=== PATIENT | female | born 1955 ===

== ENCOUNTER 2025-02-27 14:03 | Outpatient (AMB) | payer MEDICARE, SELFPAY ==
--- NOTE | 2025-02-27 14:05 | A.OFFPC_ITS ---
Vital Signs 02/27/25 14:19 Height 4 ft 11.84 in Weight 186 lb BMI 36.5 BP 114/67 Blood Pressure Location Rt brachial Pulse 70 Pulse Source Pulse Oximeter Temp 97.8 F Temp Source Oral Pulse Oximetry (%) 97 Oxygen Delivery Method Room Air Intake Visit Reasons: MOTION PICTURE SET GRIP-Parkinson's Disease Pt r/s'd from 02/12/25 Accompanied by: Self / Same As Patient Allergies morphine Allergy (Severe, Verified 02/27/25 14:14) sob latex Allergy (Intermediate, Verified 02/27/25 14:14) Rash Medication List - Last Reconciled 02/27/25 by Chris Bui MD [3 point cane As directed] beclomethasone dipropionate 80 mcg/actuation (Qvar RediHaler) 1 inh inhalation BID [commode bedside As directed] cyclobenzaprine 10 mg PO TID denosumab (Prolia) 60 mg subcut [id number] erenumab-aooe (Aimovig Autoinjector) 140 mg subcut QMONTH isosorbide mononitrate ER 60 mg PO DAILY levothyroxine (Synthroid) 50 mcg PO DAILY liothyronine (Cytomel) 5 mcg PO .twice week losartan 50 mg PO ONCE metoprolol succinate ER 100 mg PO BID nateglinide 120 mg PO TID ondansetron 4 mg PO Q4-6H pantoprazole (Protonix) 40 mg PO BID trazodone 50 - 100 mg PO BEDTIME PRN Tobacco use date assessed: 02/27/25 Fall risk assessment: 2 + Falls in past year Last assessed Fall Risk: 02/27/25 Dental Screening Dental Screen Date: 02/27/25 Did you have a dental visit in the last 12 months?: Yes HPI HPI Comments History of Present Illness Details History of Present Illness The patient is a 69 year old female presenting for establishment of care and management of multiple chronic medical problems. Parkinson's disease: The patient was diagnosed with Parkinson's disease around summer, at the same time as her diabetes diagnosis. She reports frequent falls due to her Parkinson's disease, with the most recent fall occurring about a month ago, which prompted a 911 call. She also experiences imbalance, difficulty writing, and requires a cane for ambulation. She takes carbidopa-levodopa for her symptoms and is pending an appointment with a neurologist. She has not had physical or occupational therapy. Diabetes mellitus: The patient has a new diagnosis of diabetes mellitus since the summer, diagnosed concurrently with her Parkinson's disease. She takes an unspecified medication for her diabetes. She has not seen a mounting inspector, senior investment analyst, or ems educator for her condition. Her last ophthalmology visit is scheduled for March 16, but it is unclear if she has had retinopathy screening. She does not know her last hemoglobin A1c value. Cardiovascular Disease: The patient has a history of coronary artery disease and hypertension. She takes isosorbide mononitrate, losartan, and metoprolol for these conditions. Her last echocardiogram was 8-10 years ago and her last EKG was reported as excellent by her aesthetician in [place]. Gastrointestinal Issues: The patient reports a history of gastritis, GERD, and having ulcers twice. She experiences abdominal pain most of the time and persistent nausea. She takes pantoprazole for GERD and ondansetron for nausea. She has had two prior EGDs which were reportedly normal. Health Maintenance: The patient is 69 years old and moved to [place] from [place] in November. She reports her last mammogram is not up-to-date and her last colonoscopy was about eight years ago. She is not due for Pap smears due to a hysterectomy in 2006. Surgical History: - Left eye cataract surgery with lens re placement - Hysterectomy - Cholecystectomy Medications: - Qvar inhaler for asthma - Cyclobenzaprine 10 mg three times a da y for muscle spasms and back pain - Prolia (Denosumab) every 6 months for osteoporosis - Aimovig autoinjector once a month for migraines - Isosorbide mononitrate 60 mg for coron meeta artery disease - Levothyroxine 50 mcg daily for thyroid - liothyronine thyroid medication twice a week - Losartan 50 mg for blood pressure - Metoprolol for blood pressure and [place]cia [place]ary artery disease - nateglinide for diabetes - Ondansetron for nausea and vomiting - Pantoprazole for GERD - Trazodone for insomnia - Carbidopa-levodopa for Parkinson's dis ease Social History: - Smoking History: Denies smoking. - Substance Use: Denies illicit drug use . - Employment: Retired. 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 - Living Situation: Lives with her daugh ter and granddaughter. - Functional Status: Experiences recurre nt falls, imbalance, and difficulty with writing, attributed to Parkinson's disease. Uses a shower bar and a shower bench at home. - Nutrition: Her daughter buys organic, low-sugar foods. - Family Planning: Patient has children from normal deliveries. Diagnostic Results: - EKG: Reported as excellent by her prev [facility] aesthetician. - Echocardiogram: Performed 8-10 years a go, results not specified. - EGD: Performed twice, reportedly with no significant findings. - Colonoscopy: Performed about 8 years a go, results not specified. Past Medical History - Hypertension - Coronary artery disease - Hypothyroidism - Parkinson's disease, diagnosed recentl y - Diabetes, diagnosed recently - History of peptic ulcers (two episodes ) - Gastritis - Cataracts, status post left eye surger y, right eye surgery pending - Insomnia - Asthma, with no history of hospitaliza tion or intubation - Muscle spasms in the back - Anxiety and depression - Osteoporosis - Migraines - GERD - Recurrent falls, with one requiring a 911 call about a month ago - Edentulism Health Maintenance - Discussed need for mammogram. - Patient is due for a colonoscopy; this will be addressed by the GI referral. [facility] Medical History (Updated 02/27/25 @ 17:30 by Chris Bui MD) Bradykinesia Fine motor impairment Recurrent falls Edentulism Cataracts, bilateral Anxiety and depression History of peptic ulcer Insomnia Nausea and vomiting Hypertension Hypothyroid Migraines Osteoporosis Muscle spasm Back pain Asthma Gastritis CAD (coronary artery disease) Diabetes type 2 Parkinsons disease GERD (gastroesophageal reflux disease) Family History (Updated 02/27/25 @ 14:07 by Ivanna Restrepo CMA) Mother No problems noted. Father No problems noted. Social History Housing: House Patient Tobacco Use Status: Never used Tobacco e-Cigarette/Vaping Use: Never Used service: No Current occupational status: retired Cognitive needs: Yes (cane) Hearing needs: Yes (bilateral hearing aid) Vision needs: No Questionnaire PHQ-9 Over the last 2 weeks, how often have you been bothered by any of the following problems? 1. Little interest or pleasure in doing things: several days 2. Feeling down, depressed, or hopeless: several days 3. Trouble falling or staying asleep, or sleeping too much: several days 4. Feeling tired or having little energy: more than half the days 5. Poor appetite or overeating: several days 6. Feeling bad about yourself - or that you are a failure or have let yourself or your family down: not at all 7. Trouble concentrating on things, such as reading the newspaper or watching television: not at all 8. Moving or speaking so slowly that other people could have noticed. Or the opposite - being so fidgety or restless that you have been moving around a lot more than usual: more than half the days 9. Thoughts that you would be better off or of hurting yourself in some way: not at all Total score: 8 Depression Screening Interpretation: Negative Depression Screening Done: Yes Source: Developed by Drs. Anjel Bunn, Sara So, Nathaniel Muro and colleagues, with an educational chidi from [email or web address]. Thrive Questionnaire Date Thrive assessed: 02/27/25 I am a: Parent/Caregiver What is your living situation today?: I have a steady place to live Within the past 12 months, did the food you bought not last and you didn't have the money to get more?: Never true Within the past 12 months, did you worry whether your food would run out before you got money to buy more?: Never true Do you have trouble paying for medicines?: I choose not to answer this question Do you have trouble getting transportation to medical appointments?: No Do you have trouble paying your heating and electricity bill?: No Do you have trouble taking care of your child, family member or friend?: No Are you currently unemployed and looking for a job?: No Are you interested in more education?: No Please select the resources that you would like help with: Transportation, Utilities and Care for elder or disabled Currently or been in a relationship where the following occur: I choose not to answer THRIVE Score: 0 AUDIT C Alcohol Use Questionnaire (AUDIT-C) 1. How often do you have a drink containing alcohol?: Never Total Score: 0 SHELL-7 AMB Questionnaire SHELL-7 Date SHELL - 7 assessed: 02/27/25 Feeling nervous, anxious, or on edge: 2 = More than half the days Not being able to stop or control worryin = Nearly every day Worrying too much about different things: 3 = Nearly every day Trouble relaxin = Not at all Being so restless that it is hard to sit still: 2 = More than half the days Becoming easily annoyed or irritable: 2 = More than half the days Feeling afraid as if something awful might happen: 2 = More than half the days Total SHELL-7 score (0-4 normal; 5-9 mild; 10-14 moderate; 15-21 severe): 14 Source: Developed by Drs. Anjel Bunn, Sara So, Nathaniel Muro and colleagues, with an educational chidi from [email or web address]. Review of Systems Narrative Review of Systems - General: Denies pain. - Neurological: Reports migraines, muscle spasms, frequent falls, imbalance, and difficulty writing. Reports difficulty falling asleep and staying asleep. - HEENT: Reports cataracts in the right eye, with left eye surgery completed. Reports being edentulous. - Respiratory: Reports a history of asthma. Denies recent hospitalization or in tubation for asthma. - Gastrointestinal: Reports having ulcers twice in the past, gastritis, and GERD. Reports ongoing stomach pain and nausea. - Musculoskeletal: Reports osteoporosis and back pain with muscle spasms. Reports foot pain. - Psychiatric: Reports anxiety and depression. 10-point ROS reviewed and negative except as noted in HPI Physical exam (Primary Care) Vital Signs: Last Vital Signs Temp 97.8 F 02/27/25 14:19 Pulse 70 02/27/25 14:19 BP 114/67 02/27/25 14:19 Pulse Ox 97 02/27/25 14:19 Oxygen Delivery Method Room Air 02/27/25 14:19 BMI result Body Mass Index 36.5 Tobacco/Smoking Status: Tobacco use Status Tobacco use date assessed 02/27/25 02/27/25 14:08 Patient Tobacco Use Status Never used Tobacco 02/27/25 14:08 e-Cigarette/Vaping Use Never Used 02/27/25 14:08 PHQ-9: PHQ-9 Score PHQ-9: Total score 8 02/27/25 14:31 Depression Screening Interpretation: Negative Thrive Assessment: Date of Thrive Assessment Date Thrive assessed 02/27/25 02/27/25 14:08 Currently or been in a relationship where the following occur: I choose not to answer Narrative Physical Exam General: Well-appearing, in no acute distress. Vital signs: Within normal limits. HEENT: Normocephalic, atraumatic. PERRLA, EOMI. Conjunctiva clear, sclera anicteric. Oropharynx clear, mucous membranes moist. TMs intact bilaterally. Noted cataracts in the right eye, status post-surgery on the left eye. Neck: Supple, no lymphadenopathy, no thyromegaly, no JVD or carotid bruits. Cardiovascular: RRR, normal S1/S2, no murmurs, rubs, or gallops. Peripheral pulses 2+ and symmetric. No edema. Respiratory: Lungs clear to auscultation bilaterally, no wheezes, rales, or rhonchi. Normal effort. History of asthma, uses Qvar inhaler. Abdomen: Soft, non-tender, non-distended. Normoactive bowel sounds. No hepatosplenomegaly, no masses. History of gastritis and ulcers. MSK: Full range of motion, no joint swelling or deformity. Normal gait. Reports muscle spasms and back pain, uses cyclobenzaprine. Skin: Warm, dry, intact. No rashes, lesions, or pallor. History of eczema. Neuro: Alert and oriented x3. Cranial nerves II-XII intact. Strength 5/5 throughout. Sensation intact. Reflexes 2+ symmetric. Normal coordination and gait. History of Parkinson's disease, uses carbidopa/levodopa. Reports frequent falls and imbalance. Psych: Appropriate mood and affect. Normal judgment and insight. Reports anxiety, depression, and insomnia, uses trazodone for sleep. Office Procedures Flu Questionnaire Does the patient have a severe egg allergy?: No Does the patient have severe life threatening allergies?: No Does the patient have a fever or illness today?: No Has the patient ever had Guillain-[place] Syndrome?: No Has the patient ever had any past reaction to a flu shot?: No Immunizations Fluarix [id number] (PF) 45 mcg (15 mcg x 3)/0.5 mL IM syringe Performing Provider: Chris Bui MD Performing Location: [facility] Documented (not given) by: Ivanna Restrepo CMA on 02/27/25 14:31 Reason Not Given: Patient Refused Coding Level of Care Code New Pt Level 4 (01871) Add On Problem Visit Only Diagnoses Parkinsons disease G20.A1 Diabetes type 2 E11.9 CAD (coronary artery disease) I25.10 Gastritis K29.70 GERD (gastroesophageal reflux disease) K21.9 Asthma J45.909 Back pain M54.9 Muscle spasm M62.838 Osteoporosis M81.0 Migraines G43.909 Hypothyroid E03.9 Hypertension I10 Nausea and vomiting R11.2 Insomnia G47.00 History of peptic ulcer Z87.11 Anxiety and depression F41.9; F32.A Cataracts, bilateral H26.9 Edentulism K08.109 Recurrent falls R29.6 Assessment & Plan Assessment & Plan (1) Parkinsons disease: Code(s): G20.A1 - Parkinson's disease without dyskinesia, without mention of fluctuations Category: Medical (2) Diabetes type 2: Code(s): E11.9 - Type 2 diabetes mellitus without complications Category: Medical (3) CAD (coronary artery disease): Code(s): I25.10 - Atherosclerotic heart disease of [place] coronary artery without angina pectoris Category: Medical (4) Gastritis: Code(s): K29.70 - Gastritis, unspecified, without bleeding Category: Medical (5) GERD (gastroesophageal reflux disease): Code(s): K21.9 - Gastro-esophageal reflux disease without esophagitis Category: Medical (6) Asthma: Code(s): J45.909 - Unspecified asthma, uncomplicated Category: Medical (7) Back pain: Code(s): M54.9 - Dorsalgia, unspecified Category: Medical (8) Muscle spasm: Code(s): M62.838 - Other muscle spasm Category: Medical (9) Osteoporosis: Code(s): M81.0 - Age-related osteoporosis without current pathological fracture Category: Medical (10) Migraines: Code(s): G43.909 - Migraine, unspecified, not intractable, without status migrainosus Category: Medical (11) Hypothyroid: Code(s): E03.9 - Hypothyroidism, unspecified Category: Medical (12) Hypertension: Code(s): I10 - Essential (primary) hypertension Category: Medical (13) Nausea and vomiting: Code(s): R11.2 - Nausea with vomiting, unspecified Category: Medical (14) Insomnia: Code(s): G47.00 - Insomnia, unspecified Category: Medical (15) History of peptic ulcer: Code(s): Z87.11 - Personal history of peptic ulcer disease Category: Medical (16) Anxiety and depression: Code(s): F41.9 - Anxiety disorder, unspecified; F32.A - Depression, unspecified Category: Medical (17) Cataracts, bilateral: Code(s): H26.9 - Unspecified cataract Category: Medical (18) Edentulism: Code(s): K08.109 - Complete loss of teeth, unspecified cause, unspecified class Category: Medical (19) Recurrent falls: Code(s): R29.6 - Repeated falls Category: Medical Plan Consent Patient was informed and verbally consented to the use of an ambient scribe for clinic note documentation during this visit. Plan 1. Establishment Of Care - The patient recently moved from [place] and is establishing care. A comprehensive set of baseline labs will be ordered, including a CBC, CMP, HbA1c, lipid panel, hepatitis panel (B and C), HIV, syphilis, vitamin B12, folate, vitamin D, TSH, and a urinalysis. - The patient will get bloodwork done today. - A follow-up appointment is scheduled in two weeks to review results. 2. Parkinson's Disease - Will place a referral to Neurology for management. - For gait instability and frequent falls, will order a cane, a bedside commode, physical therapy, and occupational therapy for hand function. - Will investigate arranging for home-based services, such as a visiting nurse. - Patient reports having a shower bar and shower chair at home. 3. Diabetes Mellitus - Will check hemoglobin A1c with today's labs. - Will place referrals to Podiatry, a senior investment analyst, and a ems educator. - Patient has an upcoming ophthalmology appointment for diabetic retinopathy screening. 4. Gastrointestinal Issues - For chronic abdominal pain and nausea despite taking pantoprazole, a referral will be placed to Gastroenterology for further evaluation, including a possible colonoscopy. 5. Coronary Artery Disease - Will place a referral to Cardiology for continued management. 6. Dental Care - Patient reports being edentulous and having issues with her dentures. She has recently resolved insurance issues and plans to see a dentist. Discussion Notes I discussed with the patient that we will be establishing her as a new patient in our practice today. I informed her that we would be ordering a comprehensive set of blood and urine labs to get a baseline understanding of her health, which she can have drawn today. We will be placing several referrals to specialists, including Neurology for her Parkinson's disease, Gastroenterology for her chronic stomach pain and need for colonoscopy, Cardiology for her coronary artery disease, and Podiatry for diabetic foot care. Additionally, I will refer her to Physical Therapy, Occupational Therapy, a senior investment analyst, and a ems educator. I explained that these departments will call her to schedule appointments, and if she does not hear from them within a week or two, she should contact [facility] directly. To address her risk of falls, I will order a cane and a bedside commode to reduce nighttime walking to the bathroom. I also discussed the possibility of arranging for visiting nurse services for in-home therapies. We will have a follow-up visit in two weeks to review the lab results and check on the status of the referrals. Patient Instructions - Please go to the lab today to have your blood drawn. - You will receive calls from several departments to schedule appointments with specialists, including Neurology, GI (stomach doctor), Cardiology (heart doctor), and Podiatry (foot doctor). - If you do not receive a call within one to two weeks, please call [facility] and ask to be connected to the respective department, mentioning that Dr. Bui placed the referral. - We will be ordering a cane and a portable toilet for you to use at home to help prevent falls. - It is important to complete your mammogram for cancer screening. - Continue with your plan to see the dentist for your dental issues. - Please return to the clinic in two weeks for a follow-up appointment. Medical Decision Making The patient is a 69-year-old female with a complex medical history presenting to establish care after a recent move. Her multiple chronic conditions, including Parkinson's disease, diabetes, and coronary artery disease, require comprehensive management and coordination of care. The immediate goals are to establish a baseline health status, ensure continuity of care, and address urgent safety concerns. Given her recent diagnoses of Parkinson's and diabetes, and the associated functional decline with recurrent falls, referrals to Neurology, PT, and OT are critical to optimize her function and prevent injury. Ordering durable medical equipment such as a cane and a bedside commode is a necessary step to mitigate fall risk at home. Comprehensive lab work is ordered to assess glycemic control (HbA1c), renal and liver function, thyroid status, and screen for nutritional deficiencies and infectious diseases, which is essential for a new patient with her comorbidities. Referrals to specialists (Cardiology, Gastroenterology, Podiatry) are warranted for ongoing management of her established conditions and new symptoms like chronic abdominal pain. Referrals to a senior investment analyst and ems educator are also sharp components of standard diabetes care. Health maintenance is also a priority; the patient is overdue for a mammogram and colonoscopy. The GI referral will facilitate the colonoscopy. A follow-up in two weeks is scheduled to review all initial findings and ensure the care plan is being enacted effectively. Total Time Statement 30 min Total time spent caring for the patient today includes pre-visit chart review, documentation, review of laboratory and diagnostic imaging results, medication reconciliation, medically necessary evaluation, counseling on diagnoses, care coordination, ordering appropriate tests and medications, review of tests performed by other providers, reporting test results to the patient, and communication with other healthcare providers. Orders: Orders Hepatitis B Surface Antigen Today Z13.9 - Encounter for screening, unspecified Syphilis Screen Today Z13.9 - Encounter for screening, unspecified Comprehensive Met. Panel Today Z13.9 - Encounter for screening, unspecified HIV Ab/Ag Today Z13.9 - Encounter for screening, unspecified UA CC w/rflx Micro + Cult Today Z13.9 - Encounter for screening, unspecified AMB Hemoglobin A1c Today Z13.9 - Encounter for screening, unspecified Lipid Panel Today Z13.9 - Encounter for screening, unspecified Vitamin B12 and Folate Today Z13.9 - Encounter for screening, unspecified Hemoglobin A1c Today Z13.9 - Encounter for screening, unspecified Microalbumin, Random (w Creat) Today Z13.9 - Encounter for screening, unspecified Influenza [id number] Immunization Today Z23 - Encounter for immunization Complete Blood Count Auto Diff Today Z13.9 - Encounter for screening, unspecified Hepatitis C Antibody Today Z13.9 - Encounter for screening, unspecified TSH reflex Free T4 Today Z13.9 - Encounter for screening, unspecified Magnesium Today Z13.9 - Encounter for screening, unspecified Hepatitis B Surface Antibody Today Z13.9 - Encounter for screening, unspecified Vitamin D 25-OH (D2 and D3) Today Z13.9 - Encounter for screening, unspecified PT Evaluation and Treatment Today G20.A1 - Parkinson's disease without dyskinesia, without mention of fluctuations, R29.6 - Repeated falls OT Evaluation and Treatment Today R25.8 - Other abnormal involuntary movements, R29.818 - Other symptoms and signs involving the nervous system, R29.898 - Other symptoms and signs involving the musculoskeletal system Referrals Podiatry Referral E11.9 - Type 2 diabetes mellitus without complications Neurology Referral G20.A1 - Parkinson's disease without dyskinesia, without mention of fluctuations, G43.909 - Migraine, unspecified, not intractable, w ithout status migrainosus Gastroenterology Referral K21.9 - Gastro-esophageal reflux disease without esophagitis, Z13.9 - Encounter for screening, unspecified Nurse Navigator Referral E11.9 - Type 2 diabetes mellitus without complications Nutrition/Dietitian Referral E11.9 - Type 2 diabetes mellitus without complic ations Cardiology Referral I10 - Essential (primary) hypertension, I25.10 - Atherosclerotic heart disease of [place] coronary artery without angina pectoris Gastroenterology Referral K21.9 - Gastro-esophageal reflux disease without esophagitis, K29.70 - Gastritis, unspecified, without bleeding, R11.2 - Nausea with vomiting, unspecified, Z87.11 - Personal history of peptic ulcer disease Medications: New [3 point cane] As directed 1 ea 0RF G20.A1 - Parkinson's disease without dyskinesia, without mention of fluctuations, R25.8 - Other abnormal involuntary movements, R29.6 - Repeated falls [commode bedside] As directed 1 ea 0RF G20.A1 - Parkinson's disease without dyskinesia, without mention of fluctuations, R25.8 - Other abnormal involuntary movements, R29.6 - Repeated falls
[2025-02-27 14:19] VITALS: BP 114/67; PULSE 70; TEMP 36.6; O2SAT 97; BMI 36.5
== END 2025-02-27 15:06 | disposition home or self-care (01) ==
LOC: HO.HMCFMS 14:04
PROVIDERS: PCP Student in an Organized Health Care Education/Training Program; Visit Provider Student in an Organized Health Care Education/Training Program
DX: Z23 Encounter for immunization (principal)

== ENCOUNTER 2025-02-27 14:03 | Outpatient (REF) | payer MEDICARE, SELFPAY ==
--- OUTSIDE RECORDS SUMMARY | 2023-06-26 15:24 | XMS_ITS | Encounter Summary ---
Author Organization [facility] Address [address] [place] [address] Care Team Providers Care Market Research Associate Name Role Phone Dre Jenkins MD Unavailable [phone] Zachary Paredes MD Unavailable [phone] Angelo Randall MD Unavailable [phone] Sunil Whitten MD Unavailable [phone] John Bergeron MD Unavailable [phone] Simon Ruth MD Unavailable Tani Santoro LPC Unavailable [phone] John Paul MD Unavailable [phone] John Us MD Unavailable [phone] Carter Begum MD Unavailable [facility], Provider Not In Primary Care Provider Un available Geovani Fernandez MD Unavailable [phone] Vladimir Gomez MD Unavailable Encounter Details Date Type Department Care Team (Late st Contact Info) Description 06/26/2023 4:24 PM EDT Hospital Encounter [facility] [address] [place] [address] [address] Enid Johnson [address] [address] Social History Tobacco Use Types Packs/Day Years Used Date Smoking Tobacco: Never Smokeless Tobacco: Never Alcohol Use Standard Drinks/Week Comments No 0 (1 standard drink = 0.6 oz pur e alcohol) Comments No Sex and Gender Information Value Date Recorded Sex Assigned at Female 04/01/2022 4:52 AM EST Legal Sex Female 2:15 PM EDT Gender Identity Female 04/01/2022 4:52 AM EST Sexual Orientation Heterosexual (straight) 04/01 4:52 AM EST Occupation Industry Job Start Date Job End Date On Disability Not on file Not on file Not on file documented as of this encounter Plan of Treatment Not on file documented as of this encounter Goals Goal Patient Goal Type Associated Problems Recent Progress Patient-Stated? Author PT STG 1 Physical Therapy No Qiana Alejandra PT Note: Patient to have a good understanding and be independent with HEP within 6 weeks PT LTG 1 Physical Therapy No Qiana Alejandra PT Note: Patient to complete Quick Dash next visit. Patient to increase Left GHJ AROM of at least 30 degrees within 6-8 weeks which would facilitate dressing/grooming. Patient to increase upper extremity strength by 1/2 MMT within 6-8 weeks to enable patient to lift/carry at least 5 lbs with minimal to no pain. Patient to demonstrate an improvement in symptoms as evidenced by decreased limitations sleeping; waking up less than 1x/night, within 6-8 weeks documented as of this encounter Procedures Procedure Name Priority Date/Time Associated Diagnosis Comments XR CHEST 2 VIEWS STAT 06/26/2023 4:32 PM EDT Acute cough documented in this encounter Results * XR Chest 2 views (06/26/2023 4:32 PM EDT) Anatomical Region Laterality Modality Chest Computed Radiogr aphy 06/26/2023 4:43 PM EDT Impressions 06/26/2023 4:44 PM EDT Left base subsegmental atelectasis or scarring. Stable chest x-ray. Narrative 06/26/2023 4:44 PM EDT PROCEDURE: XR CHEST 2 VIEWS INDICATION: r/o pna COMPARISON: Chest x-ray 11/03/2017 TECHNIQUE: PA and lateral views of the chest. FINDINGS: Lines and Tubes: None. Heart and Mediastinum: The heart and mediastinal contours are unremarkable. Lungs and Pleura: The lungs are hyperexpanded. There is persistent mild streaky opacity at the left lung base. There are no pleural effusions. Skeletal structures: The bony structures are unremarkable. Procedure Note Terell Hernández MD - 06/26/2023 PROCEDURE: XR CHEST 2 VIEWS INDICATION: r/o pna COMPARISON: Chest x-ray 11/03/2017 TECHNIQUE: PA and lateral views of the chest. FINDINGS: Lines and Tubes: None. Heart and Mediastinum: The heart and mediastinal contours areunremarkable. Lungs and Pleura: The lungs are hyperexpanded. There is persistent mildstreaky opacity at the left lung base. There are no pleural effusions. Skeletal structures: The bony structures are unremarkable. IMPRESSION: Left base subsegmental atelectasis or scarring. Stable chest x-ray. [facility] IMG DIAGNOSTIC IMAGING ORDERABL ES Final Result documented in this encounter Visit Diagnoses Not on filedocumented in this encounter Care Teams Market Research Associate Relationship Specialty Start Date End Date System, Provider Not In [address] [place] [address] PCP - General 05/11/22 07/21/23 Dre Jenkins MD Resident Psychiatry, General 10/29/16 Zachary Paredes MD Physician Cardiovascular Disease 10/29/16 Angelo Randall MD Physician Pulmonary Disease 10/29/16 Sunil Whitten MD Physician Gastroenterology 12/15/16 John Bergeron MD [address] [place] [id number] Gastroenterology 08/22/18 Simon Ruth MD [address] [facility], [place] [address] Physician Psychiatry, General 12/15/18 Tani Santoro LPC [address] [place] [address] Production Cost Estimator Clinical Social Work 12/16/18 John Paul MD [address] [place] [address] Psychiatry, General 12/21/18 John Us MD [address] [place] [address] Psychiatry, General 12/22/18 Carter Begum MD [address] [place] [id number] Internal Medicine 10/20/21 Geovani Fernandez MD [address] [place] [address] Primary [place] Expert Cardiovascular Disease 03/15/22 Vladimir Gomez MD [address] [place] [address] Primary [place] Expert Cardiovascular Disease 03/15/22 documented as of this encounter
[2025-02-27 18:16] LABS: MANUAL DIFF FLAG NO
[2025-02-27 18:25] LABS: Hematocrit 41.0 % (37.0-47.0); Hemoglobin 13.9 g/dl (12.0-16.0); Imm Gran Abs Auto 0.06 X10*3/uL (0.00-0.03); Imm Gran Pct Auto 0.6 % (0.0-0.4); Lymphocytes Absolute Auto 2.1 X10*3/uL (1.2-4.9); Mean Corpuscular HGB Conc 33.9 g/dl (31.0-35.0); Mean Corpuscular Hemoglobin 30.2 pg (27.0-33.0); Mean Corpuscular Volume 88.9 fL (80.0-98.0); NRBC Abs Auto 0.000 X10*3/uL (0.0-0.012); NRBC Pct Auto 0.0 /100WBC (0.0-0.2); Platelet Count 276 X10*3/uL (160-400); Red Blood Count 4.61 X10*6/uL (4.20-5.50); White Blood Count 9.8 X10*3/uL (4.8-10.8)
[2025-02-27 18:44] LABS: Alanine Aminotransferase 23 U/L (0-31); Albumin Level 4.6 g/dL (3.5-5.0); Alkaline Phosphatase 83 U/L (39-117); Anion Gap 10 (12-20); Aspartate Amino Transferase 49 U/L (5-31); Blood Urea Nitrogen 17 mg/dL (9-16); Calcium 9.2 mg/dL (8.4-10.2); Carbon Dioxide 28 mmol/L (22-29); Chloride 105 mmol/L (96-108); Cholesterol 147 mg/dL (<200); Estimated Glomerular Filt Rate > 60; HDL Cholesterol 45 mg/dL (>40); Magnesium 2.2 mg/dL (1.6-2.6); Potassium 4.3 mmol/L (3.3-5.1); Sodium 139 mmol/L (135-145); Total Protein 7.3 g/dL (6.5-8.0); Triglycerides 152 mg/dL (<150)
[2025-02-27 19:12] LABS: Folate 10.6 ng/mL (> or = 4.0); Vitamin B12 1060 pg/mL (200-900)
--- OUTSIDE RECORDS SUMMARY | 2025-02-27 19:30 | XMS_ITS | Encounter Summary ---
Author Organization [facility] Address [address] [place] [address] Care Team Providers Care Quarryman Name Role Phone Dre Jenkins MD Unavailable +[phone] Zachary Paredes MD Unavailable [phone] Angelo Randall MD Unavailable [phone] Sunil Whitten MD Unavailable [phone] Julio Upton MD Primary Care Provider Unava ilable Sara Jacobson LCSW Unavailable [phone] John Bergeron MD Unavailable [phone] Simon Ruth MD Unavailable [phone] Tani Santoro LPC Unavailable [phone] John Paul MD Unavailable [phone] John Us MD Unavailable [phone] Pcp, No Primary Care Provider UnavailCarter Pagan MD Unavailable Unavailal e Julio Upton MD Primary Care Provider Unava ilable System, Provider Not In Primary Care Provider Un available Geovani Fernandez MD Unavailable + Vladimir Gomez MD Unavailable + Pcp, No Primary Care Provider UnavailSamara Avitia APRN Primary Care Provi renard Encounter Details Date Type Department Care Team (Late st Contact Info) Description 11/04/2018 Scanned Document [address] [address] Provider, Generic Social History Tobacco Use Types Packs/Day Years [...] on file documented as of this encounter Visit Diagnoses Not on filedocumented in this encounter Care Teams Quarryman Relationship Specialty Start Date End Date Julio Upton MD PCP - General Internal Medicine 05/24/17 10/23/20 Pcp, No PCP - General General Medicine 10/24/20 04/29/22 Julio Upton MD PCP - General Internal Medicine 04/30/22 05/05/22 System, Provider Not In PCP - General 05/11/22 07/21/23 Pcp, No PCP - General General Medicine 07/22/23 11/01/23 Samara Stubbs APRN [address] [place] [address] PCP - General 11/02/23 Dre Jenkins MD Resident Psychiatry, General 10/29/16 Zachary Paredes MD Physician Cardiovascular Disease 10/29/16 Angelo Randall MD Physician Pulmonary Disease 10/29/16 Sunil Whitten MD Physician Gastroenterology 12/15/16 Sara Jacobson, [facility] [address] [facility] 4 [place] [address] [facility] Community Graduating Machine Operator 04/22/18 04/12/19 John Bergeron MD [address] [place] [address] Gastroenterology 08/22/18 Simon Ruth MD [address] [place] [address] Physician Psychiatry, General 12/15/18 Tani Santoro LPC [address] [place] [address] Pairer Clinical Social Work 12/16/18 John Paul MD [address] [place] [address] Psychiatry, General 12/21/18 John Us MD [address] [place] [address] Psychiatry, General 12/22/18 Carter Begum MD Internal Medicine 10/20/21 Geovani Fernandez MD [address] [place] [address] Primary Traffic Director Cardiovascular Disease 03/15/22 Vladimir Gomez MD [address] [place] [address] Primary Traffic Director Cardiovascular Disease 03/15/22 Samara Mackey Advanced Practitioner 11/01/23 documented as of this encounter
--- OUTSIDE RECORDS SUMMARY | 2025-02-27 19:30 | XMS_ITS | Encounter Summary ---
Author Organization [facility] Address [address] [place] [address] Care Team Providers Care Senior Architect Name Role Phone Dre Jenkins MD Unavailable +[phone] Zachary Paredes MD Unavailable [phone] Angelo Randall MD Unavailable [phone] Sunil Whitten MD Unavailable [phone] Julio Upton MD Primary Care Provider Unava ilable Sara Jacobson LCSW Unavailable +[phone] John Bergeron MD Unavailable [phone] Simon Ruth MD Unavailable [phone] Tani Santoro LPC Unavailable [phone] John Paul MD Unavailable [phone] [...] Care Team (Late st Contact Info) Description 09/26/2018 Scanned Document [address] [address] Provider, Generic Social History Tobacco [...] on filedocumented in this encounter Care Teams Senior Architect Relationship Specialty Start Date End Date Julio Upton MD PCP - General Internal Medicine 05/24/17 10/23/20 Pcp, No PCP - General General Medicine 10/24/20 04/29/22 Julio Upton MD PCP - General Internal Medicine 04/30/22 05/05/22 System, Provider Not In PCP - General 05/11/22 07/21/23 Pcp, No PCP - General General Medicine 07/22/23 11/01/23 Samara Stubbs APRN [address] [place] [address] PCP - General 11/02/23 Dre Jenkins MD Resident Psychiatry, General 10/29/16 Zachary Paredes MD Physician Cardiovascular Disease 10/29/16 Angelo Randall MD Physician Pulmonary Disease 10/29/16 Sunil Whitten MD Physician Gastroenterology 12/15/16 Sara Jacobson, [facility] [address] [facility] 4 [place] [address] [facility] Community Assistant Property Manager 04/22/18 04/12/19 John Bergeron MD [address] [place] [address] Gastroenterology 08/22/18 Simon Ruth MD [address] [place] [address] Physician Psychiatry, General 12/15/18 Tani Santoro LPC [address] [place] [address] Agronomy Research Manager Clinical Social Work 12/16/18 John Paul MD [address] [place] [address] Psychiatry, General 12/21/18 John Us MD [address] [place] [address] Psychiatry, General 12/22/18 Carter Begum MD Internal Medicine 10/20/21 Geovani Fernandez MD [address] [place] [address] Primary Treasury Assistant Cardiovascular Disease 03/15/22 Vladimir Gomez MD [address] [place] [address] Primary Treasury Assistant Cardiovascular Disease 03/15/22 Samara Mackey Advanced Practitioner 11/01/23 documented as of this encounter
--- OUTSIDE RECORDS SUMMARY | 2025-02-27 19:30 | XMS_ITS | Encounter Summary ---
Author Organization [facility] Address [address] [place] [address] Care Team Providers Care Affiliate Marketing Manager Name Role Phone Dre Jenkins MD Unavailable +[phone] Zachary Paredes MD Unavailable [phone] Angelo Randall MD Unavailable [phone] Sunil Whitten MD Unavailable [phone] John Bergeron MD Unavailable [phone] Simon Ruth MD Unavailable [phone] Tani Santoro LPC Unavailable [phone] John Paul MD Unavailable [phone] John Us MD Unavailable [phone] Pcp, No Primary Care Provider UnavailCarter Pagan MD Unavailable UnavailJulio Brady MD Primary Care Provider Unava ilable System, Provider Not In Primary Care Provider Un available Geovani Fernandez MD Unavailable + Vladimir Gomez MD Unavailable + Pcp, No Primary Care Provider UnavailSamara Avitia APRN Primary Care Provi renard Encounter Details Date Type Department Care Team (Late st Contact Info) Description 06/11/2021 Scanned Document [address] [place] [address] Medical Records, Scan Social History Tobacco Use Types Packs/Day Years [...] file Not on file Not on file COVID-19 Exposure Response Date Recorded In the last month, have you been in contact with someone who was confirmed or suspected to have Coronavirus / COVID-19? No / Unsure 06/03/2021 10:46 PM EDT documented as of this encounter Plan of Treatment Not on file documented as of this encounter Visit Diagnoses Not on filedocumented in this encounter Care Teams Affiliate Marketing Manager Relationship Specialty Start Date End Date Pcp, No PCP - General General Medicine 10/24/20 04/29/22 Julio Upton MD PCP - General Internal Medicine 04/30/22 05/05/22 System, Provider Not In PCP - General 05/11/22 07/21/23 Pcp, No PCP - General General Medicine 07/22/23 11/01/23 Samara Stubbs APRN [address] [place] [address] PCP - General 11/02/23 Dre Jenkins MD Resident Psychiatry, General 10/29/16 Zachary Paredes MD Physician Cardiovascular Disease 10/29/16 Angelo Randall MD Physician Pulmonary Disease 10/29/16 Sunil Whitten MD Physician Gastroenterology 12/15/16 John Bergeron MD [address] [place] [address] Gastroenterology 08/22/18 Simon Ruth MD [address] [place] [address] Physician Psychiatry, General 12/15/18 Tani Santoro LPC [address] [place] [address] Rib Knitter Clinical Social Work 12/16/18 John Paul MD [address] [place] [address] Psychiatry, General 12/21/18 John Us MD [address] [place] [address] Psychiatry, General 12/22/18 Carter Begum MD Internal Medicine 10/20/21 Geovani Fernandez MD [address] [place] [address] Primary Web Analytics Developer Cardiovascular Disease 03/15/22 Vladimir Gomez MD [address] [place] [address] Primary Web Analytics Developer Cardiovascular Disease 03/15/22 Samara Mackey Advanced Practitioner 11/01/23 documented as of this encounter
--- OUTSIDE RECORDS SUMMARY | 2025-02-27 19:30 | XMS_ITS | Clinical Summary ---
Author Organization [facility] Address [address] [id number] Care Team Providers Care Top Coater Name Role Phone Gilma Krishna APRN Primary Care Provider [phone] Allen Mccoy MD Unavailable Gilma Krishna APRN Unavailable [phone] Allergies Active Allergy Reactions Criticality Noted Date Comments Environmental 06/29/2016 Grass 06/29/2016 Shellfish-Derived Products 7 Medications Levalbuterol HCl (Xopenex) 0.31 MG/3ML nebulizer solution 0 8 Active Fluticasone Furoate-Vilanterol (Breo Ellipta) 100-25 MCG/ACT inhaler 0 8 Active FLUTICASONE PROPIONATE, NASAL, (FT Allergy Relief 24 HR) 50 MCG/ACT nasal spray 0 8 Active Metoprolol Tartrate 75 MG Tab 0 8 Active Ranolazine (Ranexa) 500 MG 12 hr tablet 0 08/21/19 1 8 Active raNITIdine HCl (Taladine) 150 MG capsule 0 8 Active Dexlansoprazole (Dexilant) [address] capsule 0 8 Active Levothyroxine Sodium (Synthroid) 137 MCG tablet 0 8 Active Venlafaxine HCl ER (Effexor XR) 150 MG 24 hr capsule 0 8 Active traZODone HCl (DESYREL) 300 MG tablet 0 8 Active Gabapentin 50 MG Tab 0 8 Active Acyclovir (ZOVIRAX) 200 MG capsule 0 8 Active Isosorbide Mononitrate CR (IMDUR) 30 MG 24 hr tablet 180 0 8 Active Liothyronine Sodium (CYTOMEL) 25 MCG tablet 90 0 8 Active Isosorbide Mononitrate CR (IMDUR) 60 MG 24 hr tablet 60 0 8 Active Losartan Potassium (COZAAR) 100 MG tablet 30 0 8 Active Metoprolol Succinate (TOPROL-XL) 200 MG 24 hr tablet 30 0 8 Active Ofloxacin (Floxin Otic Singles) 0.3 % otic solution 5 0 8 Active Fluconazole (DIFLUCAN) 150 MG tablet 2 0 8 Active Levothyroxine Sodium (SYNTHROID, LEVOTHROID) 50 MCG tablet 90 0 8 Active Levalbuterol Tartrate (Xopenex HFA) 45 MCG/ACT inhaler 15 0 8 Active ondansetron (ZOFRAN) 4 MG tablet 30 0 8 Active hydrOXYzine HCl (ATARAX) 10 MG tablet 60 0 8 Active Venlafaxine HCl ER (EFFEXOR-XR) 37.5 MG 24 hr capsule 30 0 8 Active Benzonatate (TESSALON) 100 MG capsule TAKE 1 CAPSULE 3 TIMES DAILY NEEDED. 60 1 8 Active Beclomethasone Diprop HFA (Qvar RediHaler) 80 MCG/ACT inhaler 11 0 2 Active Beclomethasone Diprop HFA (Qvar RediHaler) 80 MCG/ACT inhaler 11 0 2 Active Losartan Potassium (COZAAR) 50 MG tablet 180 0 2 Active Losartan Potassium (COZAAR) 50 MG tablet 180 0 2 Active Liothyronine Sodium (CYTOMEL) 5 MCG tablet TAKE 1 TABLET BY MOUTH EVERY DAY 90 0 3 Active Liothyronine Sodium (CYTOMEL) 5 MCG tablet TAKE 1 TABLET BY MOUTH EVERY DAY 90 0 3 Active Lamotrigine (LaMICtal) 100 MG tablet 90 0 3 Active Lamotrigine (LaMICtal) 100 MG tablet 90 0 3 Active Ibuprofen (ADVIL,MOTRIN) 800 MG tablet 16 0 3 Active Ibuprofen (ADVIL,MOTRIN) 800 MG tablet 16 0 3 Active Lamotrigine (LaMICtal) 25 MG tablet 90 0 3 Active Ketoconazole (NIZORAL) 2 % cream 60 0 3 Active Ketoconazole (NIZORAL) 2 % cream 60 0 3 Active Ondansetron (ZOFRAN-ODT) 4 MG disintegrating tablet 60 0 3 Active Ondansetron (ZOFRAN-ODT) 4 MG disintegrating tablet 60 0 3 Active methylPREDNISolone (MEDROL DOSPAK) 4 MG tablet TAKE DIRECTED 21 0 3 Active Aimovig 140 MG/ML Solution Auto-injector 3 0 3 Active Aimovig 140 MG/ML Solution Auto-injector 3 0 3 Active SUMAtriptan Succinate (IMITREX) 100 MG tablet TAKE ONE ONSET OF HEADACHE MAY TAKE ONE MORE IN ONE HOUR. MAX DOSE 200 MG PER DAY 36 0 3 Active SUMAtriptan Succinate (IMITREX) 100 MG tablet TAKE ONE ONSET OF HEADACHE MAY TAKE ONE MORE IN ONE HOUR. MAX DOSE 200 MG PER DAY 36 0 3 Active LORazepam (ATIVAN) 1 MG tablet 10 0 3 Active LORazepam (ATIVAN) 1 MG tablet 10 0 3 Active famotidine (PEPCID) 20 MG tablet TAKE 2 TABLETS (40 MG TOTAL) BY MOUTH DAILY. 90 0 3 Active DONEPEZIL HYDROCHLORIDE (ARICEPT) 5 MG tablet TAKE 1 TABLET BY MOUTH EVERY DAY 90 0 3 Active DONEPEZIL HYDROCHLORIDE (ARICEPT) 5 MG tablet TAKE 1 TABLET BY MOUTH EVERY DAY 90 0 3 Active buPROPion HCl ER, XL, (WELLBUTRIN XL) 150 MG 24 hr tablet TAKE 1 TABLET BY MOUTH EVERY DAY 90 0 3 Active Lamotrigine (LaMICtal) 200 MG tablet 90 0 3 Active Pentosan Polysulfate Sodium (Elmiron) 100 MG capsule 90 0 3 Active Metoclopramide HCl (REGLAN) 10 MG tablet TAKE ONE TABLET BY MOUTH EVERY 6 HOURS NEEDED FOR NAUSEA 30 0 3 Active prochlorperazine (COMPAZINE) 5 MG tablet TAKE 1 TABLET BY MOUTH TWICE A DAY 60 0 3 Active prochlorperazine (COMPAZINE) 10 MG tablet TAKE 1 TABLET BY MOUTH TWICE A DAY 60 0 3 Active Tobramycin-dexAMETH asone (TOBRADEX) ophthalmic solution INSTILL 1-2 DROPS IN THE AFFECTED EYE EVERY 4-6 HOURS 5 0 3 Active Fluoxetine HCl (PROzac) 20 MG capsule TAKE 1 CAPSULE BY MOUTH EVERY DAY 60 0 3 Active Rizatriptan Benzoate (MAXALT) 10 MG tablet TAKE ONE BY MOUTH AT ONSET OF HEADACHE. MAY REPEAT EVERY 2 HRS MAX DOSE 30 MG/DAY 36 0 3 Active Ubrogepant (Ubrelvy) 100 MG Tab 40 0 3 Active Levomilnacipran HCl ER (Fetzima) 120 MG CAPSULE SR 24 HR 90 0 3 Active DULoxetine HCl (CYMBALTA) 30 MG capsule 90 0 3 Active Ipratropium [place] (ATROVENT) 0.06 % nasal spray 60 0 3 Active Active Problems Problem Noted Date Diagnosed Date Sprain of ligaments of cervical spine 01/29/2019 GERD (gastroesophageal reflux disease) 8 Overview (04/18/2023): Impression - [id number]: - Lilly to fax over results of endoscopy Impression - [id number]: - Lilly's daughter to fax over results of endoscopy; - Continue current regimen. Chronic cough 08/20/2017 Overview (04/18/2023): Impression - 20Aug2017: - Pulmonology referral; - Cough suppression therapy referral; - Mariia Osman Impression - [id number]: - Nasal and oropharyngeal exam within normal limits. Prior laryngoscopy exam reviewed (within normal limits).; - Discussed increasing hydration. Would recommend changing to non-menthol lozenges (e.g. Ludens); - Lilly not currently on Singulair. She will discuss possibly restarting this with Dr. Nesbitt and Dr. Pereira; - Follow-up with me as needed pending completion of pulmonary testing. Headache 07/15/2016 Vocal cord nodule 06/29/2016 Chronic rhinosinusitis 06/29/2016 Social History Tobacco Use Types Packs/Day Years Used Date Smoking Tobacco: Never Assessed Comments:Smoking Status:Sandy godoy a smoker Comments Unknown Sex and Gender Information Value Date Recorded Sex Assigned at Not on file Legal Sex Female 7:58 PM EDT Gender Identity Not on file Sexual Orientation Not on file Plan of Treatment Health Maintenance Due Date Last Done Comments Hepatitis C Screening 1954 DTaP/Tdap/Td (1 - Tdap) 1972 Mammogram/Breast Imaging 1994 Colon Cancer Screening 07/17/1999 Pneumococcal 50+ years (1 of 1 - PCV) 2004 Zoster (Shingrix) (1 of 2) 2004 Bone Density 07/17/2019 COVID-19 Vaccine ( - 2024-2 6 season) 2024 Influenza (#1) 2024 RSV (1 - 1-dose 75+ series) 2029 HPV Vaccine (No Doses Required) Completed Hep A Aged Out No longer eligi ble based on patient's age to complete this topic Hep B Aged Out No longer eligi ble based on patient's age to complete this topic Hib Aged Out No longer eligi ble based on patient's age to complete this topic Meningococcal ACWY Aged Out No longer eligible based on patient's age to complete this topic Pap Smear Discontinued Zoster (Zostavax) Discontinued Care Teams Top Coater Relationship Specialty Start Date End Date Gilma Krishna APRN [address] [phone] PCP - General 10/19/22 Gilma Krishna APRN [address] [place] [address] PCP - Backup PCP Family Medicine 04/15/23 Allen Mccoy MD [address] [place] [address] 10/19/22
--- OUTSIDE RECORDS SUMMARY | 2025-02-27 19:30 | XMS_ITS | Encounter Summary ---
Author Organization [facility] Address [address] [place] [address] Care Team Providers Care Bundle Shaker Name Role Phone Dre Jenkins MD Unavailable +[phone] Zachary Paredes MD Unavailable [phone] Angelo Randall MD Unavailable [phone] Sunil Whitten MD Unavailable [phone] John Bergeron MD Unavailable [phone] Simon Ruth MD Unavailable [phone] Tani Santoro LPC Unavailable [phone] John Paul MD Unavailable [phone] John Us MD Unavailable [phone] Carter Begum MD Unavailable UnavailGeovani Phillips MD Unavailable + Vladimir Gomez MD Unavailable + Samara Stubbs APRN Primary Care Provi renard Encounter Details Date Type Department Care Team (Late st Contact Info) Description 02/02/2024 Scanned Document [facility] [address] [facility] [address] [place] [phone] Alexa Townsend MA [address] [facility] [address] [place] [address] Social History Tobacco Use Types Packs/Day Years [...] 6-8 weeks documented as of this encounter Visit Diagnoses Not on filedocumented in this encounter Care Teams Bundle Shaker Relationship Specialty Start Date End Date Samara Stubbs APRN [address] [place] [address] PCP - General 11/02/23 Dre Jenkins MD Resident Psychiatry, General 10/29/16 Zachary Paredes MD Physician Cardiovascular Disease 10/29/16 Angelo Randall MD Physician Pulmonary Disease 10/29/16 Sunil Whitten MD Physician Gastroenterology 12/15/16 John Bergeron MD [address] [place] [address] Gastroenterology 08/22/18 Simon Ruth MD [address] [place] [address] Physician Psychiatry, General 12/15/18 Tani Santoro LPC [address] [place] [address] C Java Developer Clinical Social Work 12/16/18 John Paul MD [address] [place] [address] Psychiatry, General 12/21/18 John Us MD [address] [place] [address] Psychiatry, General 12/22/18 Carter Begum MD [address] [place] [address] Internal Medicine 10/20/21 Geovani Fernandez MD [address] [place] [address] Primary Metal Burrer Cardiovascular Disease 03/15/22 Vladimir Gomez MD [address] [place] [address] Primary Metal Burrer Cardiovascular Disease 03/15/22 Samara Mackey Advanced Practitioner 11/01/23 documented as of this encounter
--- OUTSIDE RECORDS SUMMARY | 2025-02-27 19:30 | XMS_ITS | Encounter Summary ---
Author Organization [facility] Address [address] [place] [address] Care Team Providers Care Avionics Repair Technician Name Role Phone Dre Jenkins MD Unavailable +[phone] Zachary Paredes MD Unavailable [phone] Angelo Randall MD Unavailable [phone] Sunil Whitten MD Unavailable [phone] Julio Upton MD Primary Care Provider Unava ilable Sara Jacobson LCSW Unavailable [phone] John Bergeron MD Unavailable [phone] Simon Ruth MD Unavailable [phone] Tani Santoro LPC Unavailable John Paul MD Unavailable [phone] John [...] Care Team (Late st Contact Info) Description 03/09/2018 Scanned Document [address] [place] [id number] Provider, Generic Social History Tobacco Use Types [...] on filedocumented in this encounter Care Teams Avionics Repair Technician Relationship Specialty Start Date End Date Julio Upton MD PCP - General Internal Medicine 05/24/17 10/23/20 Pcp, No PCP - General General Medicine 10/24/20 04/29/22 Julio Upton MD PCP - General Internal Medicine 04/30/22 05/05/22 System, Provider Not In PCP - General 05/11/22 07/21/23 Pcp, No PCP - General General Medicine 07/22/23 11/01/23 Samara Stubbs APRN [address] [place] [address] PCP - General 11/02/23 Dre Jenkins MD Resident Psychiatry, General 10/29/16 Zachary Paredes MD Physician Cardiovascular Disease 10/29/16 Angelo Randall MD Physician Pulmonary Disease 10/29/16 Sunil Whitten MD Physician Gastroenterology 12/15/16 Sara Jacobson, [facility] [address] [facility] 4 [place] [address] [facility] Community Order Packer Or Packager 04/22/18 04/12/19 John Bergeron MD [address] [place] [address] Gastroenterology 08/22/18 Simon Ruth MD [address] [place] [address] Physician Psychiatry, General 12/15/18 Tani Santoro LPC [address] [place] [address] Director Of Assessment Clinical Social Work 12/16/18 John Paul MD [address] [place] [address] Psychiatry, General 12/21/18 John Us MD [address] [place] [address] Psychiatry, General 12/22/18 Carter Begum MD Internal Medicine 10/20/21 Geovani Fernandez MD [address] [place] [address] Primary Border Patrol Officer Cardiovascular Disease 03/15/22 Vladimir Gomez MD [address] [place] [address] Primary Border Patrol Officer Cardiovascular Disease 03/15/22 Samara Mackey Advanced Practitioner 11/01/23 documented as of this encounter
--- OUTSIDE RECORDS SUMMARY | 2025-02-27 19:30 | XMS_ITS | Encounter Summary ---
Author Organization [facility] Address [address] [place] [address] Care Team Providers Care Curatorial Assistant Name Role Phone Dre Jenkins MD Unavailable +[phone] Zachary Paredes MD Unavailable [phone] Angelo Randall MD Unavailable [phone] Sunil Whitten MD Unavailable [phone] Julio Upton MD Primary Care Provider Unava ilable Sara Jacobson LCSW Unavailable [phone] John Bergeron MD Unavailable [phone] Simon Ruth MD Unavailable [phone] Tani Santoro LPC Unavailable [phone] John Paul MD Unavailable [phone] [...] Care Team (Late st Contact Info) Description 01/17/2018 Scanned Document [address] [address] Provider, Generic Social History Tobacco [...] on filedocumented in this encounter Care Teams Curatorial Assistant Relationship Specialty Start Date End Date Julio Upton MD PCP - General Internal Medicine 05/24/17 10/23/20 Pcp, No PCP - General General Medicine 10/24/20 04/29/22 Julio Upton MD PCP - General Internal Medicine 04/30/22 05/05/22 System, Provider Not In PCP - General 05/11/22 07/21/23 Pcp, No PCP - General General Medicine 07/22/23 11/01/23 Samara Stubbs APRN [address] [place] [address] PCP - General 11/02/23 Dre Jenkins MD Resident Psychiatry, General 10/29/16 Zachary Paredes MD Physician Cardiovascular Disease 10/29/16 Angelo Randall MD Physician Pulmonary Disease 10/29/16 Sunil Whitten MD Physician Gastroenterology 12/15/16 Sara Jacobson, [facility] [address] [facility] 4 [place] [address] [facility] Community Board Of Directors 04/22/18 04/12/19 John Bergeron MD [address] [place] [address] Gastroenterology 08/22/18 Simon Ruth MD [address] [place] [address] Physician Psychiatry, General 12/15/18 Tani Santoro LPC [address] [place] [address] Loom Blower Clinical Social Work 12/16/18 John Paul MD [address] [place] [address] Psychiatry, General 12/21/18 John Us MD [address] [place] [address] Psychiatry, General 12/22/18 Carter Begum MD Internal Medicine 10/20/21 Geovani Fernandez MD [address] [place] [address] Primary X Ray Equipment Mechanic Cardiovascular Disease 03/15/22 Vladimir Gomez MD [address] [place] [address] Primary X Ray Equipment Mechanic Cardiovascular Disease 03/15/22 Samara Mackey Advanced Practitioner 11/01/23 documented as of this encounter
--- OUTSIDE RECORDS SUMMARY | 2025-02-27 19:30 | XMS_ITS | Encounter Summary ---
Author Organization [facility] Address [address] [place] [address] Care Team Providers Care Bottling Attendant Name Role Phone Dre Jenkins MD Unavailable [phone] Zachary Paredes MD Unavailable [phone] Angelo Randall MD Unavailable [phone] Sunil Whitten MD Unavailable [phone] John Bergeron MD Unavailable [phone] Simon Ruth MD Unavailable [phone] Tani Santoro LPC Unavailable [phone] John Paul MD Unavailable [phone] John Us MD Unavailable [phone] Carter Begum MD Unavailable Unavailabl e System, Provider Not In Primary Care Provider Un available Geovani Fernandez MD Unavailable + Vladimir Gomez MD Unavailable + Pcp, No Primary Care Provider Unavailabl e Samara Stubbs APRN Primary Care Provi renard Encounter Details Date Type Department Care Team (Late st Contact Info) Description 11/13/2022 Scanned Document [facility] NEUROLOGY SCAN Neurology, Scan Social History Tobacco Use Types Packs/Day [...] PT LTG 1 Physical Therapy No Qiana Alejandra, PT Note: Patient to complete Quick Dash [...] on filedocumented in this encounter Care Teams Bottling Attendant Relationship Specialty Start Date End Date System, Provider Not In [address] [place] [id number] PCP - General 05/11/22 07/21/23 Pcp, No PCP - General General Medicine 07/22/23 11/01/23 Samara Stubbs APRN [address] [place] [id number] PCP - General 11/02/23 Dre Jenkins MD Resident Psychiatry, General 10/29/16 Zachary Paredes MD Physician Cardiovascular Disease 10/29/16 Angelo Randall MD Physician Pulmonary Disease 10/29/16 Sunil Whitten MD Physician Gastroenterology 12/15/16 John Bergeron MD [address] [place] [address] Gastroenterology 08/22/18 Simon Ruth MD [address] [place] [address] Physician Psychiatry, General 12/15/18 Tani Santoro LPC [address] [place] [address] Machine Wedger Clinical Social Work 12/16/18 John Paul MD [address] [place] [address] Psychiatry, General 12/21/18 John Us MD [address] [place] [address] Psychiatry, General 12/22/18 Carter Begum MD [address] [place] [address] Internal Medicine 10/20/21 Geovani Fernandez MD [address] [place] [address] Primary Mac Artist Cardiovascular Disease 03/15/22 Vladimir Gomez MD [address] [place] [address] Primary Mac Artist Cardiovascular Disease 03/15/22 Samara Mackey Advanced Practitioner 11/01/23 documented as of this encounter
--- OUTSIDE RECORDS SUMMARY | 2025-02-27 19:30 | XMS_ITS | Clinical Summary ---
Author Organization [facility] Address [address] [place] [address] Care Team Providers Care Vegetable Specker Name Role Phone Dre Jenkins MD Unavailable [phone] Zachary Paredes MD Unavailable [phone] Angelo Randall MD Unavailable [phone] Sunil Whitten MD Unavailable [phone] John Bergeron MD Unavailable [phone] Simon Ruth MD Unavailable [phone] Tani Santoro LPC Unavailable [phone] John Paul MD Unavailable [phone] John Us MD Unavailable [phone] Carter Begum MD Unavailable Unavailabl e Geovani Fernandez MD Unavailable [phone] Vladimir Gomez MD Unavailable Samara Stubbs APRN Primary Care Provi renard Allergies Active Allergy Reactions Criticality Noted Date Comments Azithromycin Hives Medium 06/26/2023 Bee Pollen Other (See Comments),Unknown/Patient and Family Unable to Define Medium 10/18/2015 Dust Mite Extract Unknown/Patient and Family Unable to Define Medium 10/18/2015 Ibuprofen Palpitations High 01/17/2018 Bleeding Iodinated Contrast Media Anaphylaxis High 01/06/2017 Latex Anaphylaxis High 11/10/2017 Other Anaphylaxis High 02/19/2017 Cherries Other, Food Anaphylaxis High 11/10/2017 Cherries Pollen Extract Unknown/Patient and Family Unable to Define Medium 10/18/2015 Shellfish Allergy Shortness Of Breath High 7 Shellfish Protein-Containing Drug Products Shortness Of Breath High 10/29/2016 Silver Hives Medium 03/09/2018 Medications * This document contains information received from the source organization and may not represent a complete record from that organization. pentosan polysulfate (ELMIRON) 100 MG capsuleIndications :Interstitial cystitis Take 1 capsule (100 mg total) by mouth 3 (three) times a day. Take with water 1 hour before meals or 2 hours after meals. 90 capsule 5 11/11/19 18 Active Additional Information Patient not taking.Informant: Child, Reported on 09/05/2024 levocetirizine (XYZAL) 5 MG tablet Take 5 mg by mouth every evening. Active ipratropium-albute rol (DUONEB) 0.5-2.5 mg/3 mL nebulizer solutionIndication s:Moderate persistent asthma without complication Take 3 mL by nebulization 4 (four) times a day. 90 mL 5 06/30/19 19 Active Additional Information Patient taking differently:3 mL Nebulization4 times daily PRN, Informant: Child, Reported on 09/05/2024 levalbuterol (XOPENEX HFA) 45 mcg/puff inhaler Inhale every 4 (four) hours as needed for wheezing. Active levothyroxine (SYNTHROID, LEVOTHROID) 50 MCG tabletIndications: Hypothyroidism, unspecified type Take 1 tablet (50 mcg total) by mouth daily. 90 tablet 6 02/18/20 19 Active metoPROLOL SUCCINATE (TOPROL-XL) 200 MG 24 hr tablet Take 200 mg by mouth 2 (two) times a day. 02/23/20 20 Active Qvar RediHaler 80 MCG/ACT Aerosol, Breath Activate inhaler Inhale 2 puffs 2 (two) times a day. 03/21/19 21 Active isosorbide mononitrate (IMDUR) 60 MG 24 hr tabletIndications: Coronary artery disease of [place] artery [place] heart with stable angina pectoris Take 1 tablet (60 mg total) by mouth 2 (two) times a day before meals. 180 tablet 3 05/24/19 21 Active venlafaxine (EFFEXOR-XR) 75 MG 24 hr capsule 06/11/19 21 Active [facility] Antacid/Anti-Gas 200-200-20 MG/5ML suspension TAKE 10 ML BY MOUTH 4 TIMES DAILY (EVERY 6 HOURS) NEEDED FOR HEARTBURN. 06/05/19 22 Active cyclobenzaprine (FLEXERIL) 10 MG tablet Take 10 mg by mouth 3 (three) times a day. 05/19/19 22 Active liothyronine (CYTOMEL) 5 MCG tablet Take 5 mcg by mouth 2 (two) times a week. 03/28/19 22 Active losartan (COZAAR) 50 MG tablet Take 50 mg by mouth 2 (two) times a day. 04/03/19 22 Active famotidine (PEPCID) 20 MG tabletIndications: Gastroesophageal reflux disease, unspecified whether esophagitis present Take 2 tablets (40 mg total) by mouth daily. 180 tablet 1 10/28/19 23 Active Additional Information Patient not taking.Informant: Child, Reported on 09/05/2024 cyclobenzaprine (FLEXERIL) 10 MG tablet Take 2 tablets by mouth 2 (two) times a day. 03/20/19 18 Active ketoconazole (NIZORAL) 2 % cream Apply topically 2 (two) times a day. Apply to affected area 04/13/19 24 Active ondansetron (ZOFRAN-ODT) 4 MG disintegrating tablet 06/18/19 23 Active rizatriptan (MAXALT) 10 MG tablet Take by mouth. 11/12/19 23 Active ubrogepant (Ubrelvy) 100 MG tablet 11/13/19 23 Active erenumab-aooe (Aimovig) 140 MG/ML Solution Auto-injector injection 07/22/19 23 Active DULoxetine (CYMBALTA) 60 MG capsule 05/02/19 24 Active FLUoxetine (PROzac) 40 MG capsule Take 80 mg by mouth daily. 07/10/19 24 Active OMEprazole (PriLOSEC) 40 MG capsuleIndications :Gastroesophageal reflux disease without esophagitis Take 1 capsule (40 mg total) by mouth every morning before breakfast. Take 15 to 30 minutes before breakfast 90 capsule 3 07/23/19 24 Active Additional Information Patient not taking.Informant: Child, Reported on 09/05/2024 Sodium Sulfate-Mag Sulfate-KCl (Sutab) 9310-282-171 MG TabIndications:Hx of colonic polyp One dose of 12 tablets on the Day Prior to procedure. One dose of 12 tablets on the Day Of the procedure. 24 tablet 07/23/19 Active Additional Information Patient not taking.Informant: Child, Reported on 09/05/2024 amantadine (SYMMETREL) 100 MG capsule Take by mouth daily. 08/15/19 Active Yuvafem 10 MCG vaginal tablet Insert 1 tablet (10 mcg total) into the vagina 2 (two) times a week. 08/27/19 25 Active ezetimibe (ZeTIA) 10 MG tablet Take 1 tablet (10 mg total) by mouth daily. Active ketorolac (ACULAR) 0.5 % ophthalmic solution 09/01/19 Active nateglinide (STARLIX) 60 MG tablet Take 1 tablet (60 mg total) by mouth 3 (three) times a day before meals. 06/30/19 Active PANTOprazole (PROTONIX) 40 MG EC tablet Take 1 tablet (40 mg total) by mouth daily. 12/14/19 Active traZODone (DESYREL) 50 MG tablet as needed. Active cetirizine (ZyrTEC) 10 MG chewable tablet Chew 1 tablet (10 mg total) daily. Active erythromycin (ILOTYCIN) ophthalmic ointment LOCATION: LEFT EYE. APPLY 1/4 INCH STRIP INTO LEFT EYE FOUR TIMES A DAY UNTIL FOLLOW UP 06/30/19 Active prednisoLONE acetate (PRED FORTE) 1 % ophthalmic suspension INSTILL 1 DROP IN LEFT SURGICAL EYE FOUR TIMES A DAY 08/09/19 25 Active moxifloxacin (VIGAMOX) 0.5 % ophthalmic solution INSTILL 1 DROP IN LEFT SURGICAL EYE FOUR TIMES A DAY 08/09/19 25 Active carbidopa-levodopa (SINEMET) 25-100 MG per tabletIndications: Parkinson's disease, unspecified whether dyskinesia present, unspecified whether manifestations fluctuate (HCC) TAKE 1 TABLET BY MOUTH THREE TIMES A DAY 270 tablet 1 01/09/20 Active Active Problems Problem Noted Date Diagnosed Date Parkinson's disease 09/05/2024 Gastroesophageal reflux disease without esophagi tis 07/23/2023 Nausea and vomiting 07/23/2023 Epigastric pain 07/23/2023 History of peptic ulcer disease 07/23/2023 History of Helicobacter pylori infection 024 Fall 04/01/2022 Humerus fracture 03/16/2022 Right wrist pain 06/25/2020 Hx of colonic polyp 06/08/2018 Chronic cough 06/08/2018 Pruritus 01/12/2018 Other atopic dermatitis 01/12/2018 Lower abdominal pain 07/05/2017 Cyst, breast 11/02/2016 Obesity (BMI 30-39.9) 11/02/2016 Essential hypertension 10/29/2016 Chronic gastritis without bleeding 10/29/2016 Irritable bowel syndrome 10/29/2016 Anxiety and depression 10/29/2016 Shellfish allergy 10/29/2016 Moderate persistent asthma without complication 10/29/2016 Hypothyroidism 10/29/2016 Panic attacks 10/29/2016 Insomnia 10/29/2016 Interstitial cystitis 10/29/2016 Coronary artery disease of [place] artery [place] heart with stable angina pectoris 10/29/2016 Hoarseness of voice 10/29/2016 Resolved Problems Problem Noted Date Diagnosed Date Resolved Date Colon cancer screening 10/29/201608/22 Immunizations Immunization Administration Dates Next Due Influenza Inactivated/Split Preservative Free IM 01/18/2019 Tdap 06/01/2019 Family History Medical History Relation Name Comments Anxiety disorder Father Cancer Father Colon cancer Father Depression Father Hypertension Father Asthma Sister Relation Name Status Comments Father Sister Social History Tobacco Use Types Packs/Day Years Used Date Smoking Tobacco: Never Smokeless Tobacco: Never Tobacco Cessation:Counseling Given: Not Answered Alcohol Use Standard Drinks/Week Comments No 0 [...] file Not on file Not on file Last Filed Vital Signs Vital Sign Reading Time Taken Comments Blood Pressure 110/70 09/05/2024 8:53 AM EDT lightheaded Pulse 70 09/05/2024 8:53 AM EDT Temperature 36.9 C (98.4 F) 06/26/2023 4:05 PM EDT Respiratory Rate 16 06/26/2023 4:05 PM EDT Oxygen Saturation 98% 09/05/2024 8:5 3 AM EDT Inhaled Oxygen Concentration - - Weight 89.1 kg (196 lb 6.4 oz) 09/05/2024 8:39 AM EDT fully clothed with shoes Height 157.5 cm (5' 2 ) 09/05/2024 8:39 AM EDT Body Mass Index 35.92 09/05/2024 8:39 AM EDT Plan of Treatment Health Maintenance Due Date Last Done Comments Advance Care Planning 1954 Pneumococcal Vaccines 50+ (1 of 2 - PCV) 1973 Mammogram 1994 Colonoscopy 2004 RSV Vaccine 50 years and older and Patients (1 - Risk 50-74 years 1-dose series) 2004 Zoster (Shingles) Vaccine (1 of 2) 2004 Influenza Vaccine 10/13/2024 01/18/2019 COVID-19 Vaccine (2 - 2024-2 6 season) 2024 11/07/2020 DXA Bone Density (Females,Ages 65 and older) 02/15/2026 02/16/2024, 01/26/2019, 01/24/2019 DTaP/Tdap/Td Vaccines (2 - T d or Tdap) 05/31/2029 06/01/2019 Hepatitis C Virus Screening Completed 10/30/2016 Hepatitis B Vaccines Aged Out No long er eligible based on patient's age to complete this topic Goals Goal Patient Goal Type Associated Problems Recent Progress Patient-Stated? Author PT STG 1 Physical Therapy No Qiana Alejandra, PT Note: Patient to have a good [...] up less than 1x/night, within 6-8 weeks Medical Devices Implanted Type Area Zipper Trimmer Hand Device Identifier Shelf Expiration Date Model / Serial / Lot [id number] Lens Iol +13 Óscar Mod C 13mm 6mm Posterior Chamber 1 Pc Fld - [id number] Implanted:Qty: 1 on 08/28/2024 by Tyrese Kang MD at [facility] [place] L[employer] [id number] / [id number] / Procedures Procedure Name Priority Date/Time Associated Diagnosis Comments BD BONE DENSITY STUDY - AXIAL Routine 02/16/2024 1:24 PM EST HEPATITIS C VIRUS (HCV) ANTIBODY Routine 10/30/2016 9:11 AM EDT Need for hepatitis C screening test from Last 3 Months or Most Recently Relevant to Health Maintenance Results * BD BONE DENSITY STUDY - AXIAL (02/16/2024 1:24 PM EST) Anatomical Region Laterality Modality Other 02/16/2024 12:4 5 PM EST 02/16/2024 12:45 PM EST Narrative 02/24/2024 3:43 PM EST EXAMINATION: BONE DENSITOMETRY CLINICAL INDICATION: Osteopenia. COMPARISON: Baseline BD dated 01/24/2019. TECHNIQUE: Using a [employer] DXA system (software version: 14.10) manufactured by [employer], dual-energy x-ray absorptiometry was performed of the lumbar spine and left hip. The images are of good technical quality. Summary results are attached. FINDINGS: AP SPINE L1-L4 (excluding L3): The data of L1-L4 has been changed to exclude the L3 vertebral body, because significant degenerative change at this level may cause overestimation of lumbar spine density. Current: BMD 0.871 g/cm2, Z-score -1.5, T-score -2.5, osteoporosis, 5.5% decrease from baseline (<5% change is not significant). Baseline: BMD 0.922 g/cm2. LEFT FEMUR, NECK: Current: BMD 0.673 g/cm2, Z-score -1.4, T-score -2.6, osteoporosis. Baseline: BMD 0.733 g/cm2. LEFT FEMUR, TOTAL: Current: BMD 0.882 g/cm2, Z-score 0.0, T-score -1.0, normal, 6.0% decrease from baseline (<5% change is not significant). Baseline: BMD 0.938 g/cm2. IDENTIFIED RISK FACTORS: Menopause, osteoporosis, hysterectomy, history of fracture (adult), height loss, family history (parent hip fracture). HISTORY OF FRACTURE: Humerus/shoulder. MEDICATIONS: Calcium or multivitamin. Vitamin D. IMPRESSION: 1. DIAGNOSIS: Severe osteoporosis based on the lowest T-score value of -2.6 in the femur neck and history of fracture of humerus/shoulder applying World Health Organization criteria. 2. 10-YEAR FRACTURE RISK PREDICTION, FRAX: According to the guidelines, FRAX calculation should only be performed on patients in the osteopenia bone density category. Therefore, FRAX was not performed on this patient. 3. Treatment Recommendations: NOF guidelines recommend consideration for treatment in postmenopausal women and men age 50 and older presenting with the following: -A hip or vertebral (clinical or morphometric) fracture. -T-score less than or equal to -2.5 at the femoral neck or spine after appropriate evaluation to exclude secondary causes. -Low bone mass at the hip or spine and a 10-year fracture probability by FRAX of greater than or equal to 3% for hip fracture or greater than or equal to 20% for major osteoporotic fracture based on the [place] adapted WHO algorithm. 4. Other Recommendations: All treatment decisions require clinical judgment and consideration of individual patient factors, including patient preferences, comorbidities, previous drug use, risk factors not captured in the FRAX model (e.g. frailty, falls, vitamin D deficiency, increased bone turnover, interval significant decline in bone density) and possible under or overestimation of fracture risk by FRAX. Additional medical evaluation for secondary cause of low bone mineral density may be appropriate. FUTURE SCAN RECOMMENDATION: People with diagnosed cases of osteoporosis or at high risk for fracture should have regular bone mineral density tests. For patients eligible for Medicare, routine testing is allowed once every 2 years. The testing frequency can be increased to one year for patients who have rapidly progressing disease, those who are receiving or discontinuing medical therapy to restore bone mass, or have additional risk factors. Electronically signed by: Teetee Lemus MD 02/24/2024 03:43 PM [facility] Thank you for referring your patient to us, Teetee Lemus MD [phone] (Electronically Signed - 02/24/2024 15:43) Copy: PATIENT , Procedure Note Teetee Lemus MD - 02/24/2024 EXAMINATION: BONE DENSITOMETRY CLINICAL INDICATION: Osteopenia. COMPARISON: Baseline BD dated 01/24/2019. TECHNIQUE: Using a [employer] DXA system (software version:14.10) manufactured by [employer], dual-energy x-rayabsorptiometry was performed of the lumbar spine and left hip. The imagesare of good technical quality. Summary results are attached. FINDINGS: AP SPINE L1-L4 (excluding L3): The data of L1-L4 has been changed toexclude the L3 vertebral body, because significant degenerative change atthis level may cause overestimation of lumbar spine density. Current: BMD 0.871 g/cm2, Z-score -1.5, T-score -2.5, osteoporosis, 5.5%decrease from baseline (<5% change is not significant). Baseline: BMD 0.922 g/cm2. LEFT FEMUR, NECK: Current: BMD 0.673 g/cm2, Z-score -1.4, T-score -2.6, osteoporosis. Baseline: BMD 0.733 g/cm2. LEFT FEMUR, TOTAL: Current: BMD 0.882 g/cm2, Z-score 0.0, T-score -1.0, normal, 6.0% decreasefrom baseline (<5% change is not significant). Baseline: BMD 0.938 g/cm2. IDENTIFIED RISK FACTORS: Menopause, osteoporosis, hysterectomy, history of fracture (adult), heightloss, family history (parent hip fracture). HISTORY OF FRACTURE: Humerus/shoulder. MEDICATIONS: Calcium or multivitamin. Vitamin D. IMPRESSION: 1. DIAGNOSIS: Severe osteoporosis based on the lowest T-score value of-2.6 in the femur neck and history of fracture of humerus/shoulderapplying World Health Organization criteria. 2. 10-YEAR FRACTURE RISK PREDICTION, FRAX: According to the guidelines,FRAX calculation should only be performed on patients in the osteopeniabone density category. Therefore, FRAX was not performed on thispatient. 3. Treatment Recommendations: NOF guidelines recommend consideration fortreatment in postmenopausal women and men age 50 and older presenting withthe following: -A hip or vertebral (clinical or morphometric) fracture. -T-score less than or equal to -2.5 at the femoral neck or spine afterappropriate evaluation to exclude secondary causes. -Low bone mass at the hip or spine and a 10-year fracture probability byFRAX of greater than or equal to 3% for hip fracture or greater than orequal to 20% for major osteoporotic fracture based on the [place] adapted WHOalgorithm. 4. Other Recommendations: All treatment decisions require clinicaljudgment and consideration of individual patient factors, includingpatient preferences, comorbidities, previous drug use, risk factors notcaptured in the FRAX model (e.g. frailty, falls, vitamin D deficiency, increased bone turnover, interval significantdecline in bone density) and possible under or overestimation of fracturerisk by FRAX. Additional medical evaluation for secondary cause of lowbone mineral density may be appropriate. FUTURE SCAN RECOMMENDATION: People with diagnosed cases of osteoporosis or at high risk for fractureshould have regular bone mineral density tests. For patients eligible forMedicare, routine testing is allowed once every 2 years. The testingfrequency can be increased to one year for patients who have rapidly progressing disease, those who arereceiving or discontinuing medical therapy to restore bone mass, or haveadditional risk factors. Electronically signed by: Teetee Lemus MD 02/24/2024 03:43 PM EST RPWorkstation: [id number] Thank you for referring your patient to us, Teetee Lemus MD [id number] (Electronically Signed - 02/24/2024 15:43) Copy: PATIENT , us [facility] PROCEDURES Final Resu lt * Hepatitis C Virus (HCV) Antibody (10/30/2016 9:11 AM EDT) Hepatitis C Antibody NON-REACTI VE NON-REACT [facility] Hepatitis C Antibody (s/co) 0.02 <1.00 [facility] Blood specimen (specimen) Blood specimen / Unknown 10/30/2016 9:11 AM EDT 10/30/2016 9:19 AM EDT Narrative [facility] - 10/31/2016 1:17 AM EDT FASTING:YES Resulting Agency Comment Performing Organization Information: Site ID: [id number] Name: [facility] Address: [address], [place] [address] Director: Luisa Byrne MD us Rosas Cortez DO LAB BLOOD ORDERABLES Final Re sult [facility] [address], [place] [address] from Last 3 Months or Most Recently Relevant to Health Maintenance Insurance MEDICARE PART A & B [facility] MEDICARE MEDICARE PART A & B [facility] B [facility] & B [facility] MEDICARE [facility] MEDICARE [facility] MEDICARE MEDICARE PART A & B [facility] MEDICARE Care Teams Vegetable Specker Relationship Specialty Start Date End Date Samara Stubbs APRN [address] [place] [address] PCP - General 11/02/23 Dre Jenkins MD Resident Psychiatry, General 10/29/16 Zachary Paredes MD Physician Cardiovascular Disease 10/29/16 Angelo Randall MD Physician Pulmonary Disease 10/29/16 Sunil Whitten MD Physician Gastroenterology 12/15/16 John Bergeron MD [address] [place] [address] Gastroenterology 08/22/18 Simon Ruth MD [address] [place] [address] Physician Psychiatry, General 12/15/18 Tani Santoro LPC [address] [facility], [place] [address] Clay Maker Clinical Social Work 12/16/18 John Paul MD [address] [facility], [place] [address] Psychiatry, General 12/21/18 John Us MD [address] [facility], [place] [address] Psychiatry, General 12/22/18 Carter Begum MD [address] [place] [address] Internal Medicine 10/20/21 Geovani Fernandez MD [address] [place] [address] Primary Wood Heel Flap Trimmer Cardiovascular Disease 03/15/22 Vladimir Gomez MD [address] [place] [address] Primary Wood Heel Flap Trimmer Cardiovascular Disease 03/15/22 Samara Mackey Advanced Practitioner 11/01/23
--- OUTSIDE RECORDS SUMMARY | 2025-02-27 19:30 | XMS_ITS | Encounter Summary ---
Author Organization [facility] Address [address] [place] [address] Care Team Providers Care Ems Driver Name Role Phone Dre Jenkins MD Unavailable +[phone] Zachary Paredes MD Unavailable +[phone] Angelo Randall MD Unavailable +[phone] Sunil Whitten MD Unavailable +[phone] Julio Upton MD Primary Care Provider Unava ilable Sara Jacobson LCSW Unavailable +[phone] John Bergeron MD Unavailable +[phone] Simon Ruth MD Unavailable [phone] Tani Santoro LPC Unavailable +[phone] John Paul MD Unavailable [phone] [...] Care Team (Late st Contact Info) Description 12/16/2018 Scanned Document [address] [place] [phone] Julio Upton MD Social History Tobacco Use Types Packs/Day Years [...] on filedocumented in this encounter Care Teams Ems Driver Relationship Specialty Start Date End Date Julio Upton MD PCP - General Internal Medicine 05/24/17 10/23/20 Pcp, No PCP - General General Medicine 10/24/20 04/29/22 Julio Upton MD PCP - General Internal Medicine 04/30/22 05/05/22 System, Provider Not In PCP - General 05/11/22 07/21/23 Pcp, No PCP - General General Medicine 07/22/23 11/01/23 Samara Stubbs APRN [address] [place] [address] PCP - General 11/02/23 Dre Jenkins MD Resident Psychiatry, General 10/29/16 Zachary Paredes MD Physician Cardiovascular Disease 10/29/16 Angelo Randall MD Physician Pulmonary Disease 10/29/16 Sunil Whitten MD Physician Gastroenterology 12/15/16 Sara Jacobson, [facility] [address] [facility] [address] [place] [address] [facility] Community Logger 04/22/18 04/12/19 John Bergeron MD [address] [place] [address] Gastroenterology 08/22/18 Simon Ruth MD [address] [place] [address] Physician Psychiatry, General 12/15/18 Tani Santoro LPC [address] [place] [address] Bookseamer Blindstitch Clinical Social Work 12/16/18 John Paul MD [address] [place] [address] Psychiatry, General 12/21/18 John Us MD [address] [place] [address] Psychiatry, General 12/22/18 Carter Begum MD Internal Medicine 10/20/21 Geovani Fernandez MD [address] [place] [address] Primary Center Manager Cardiovascular Disease 03/15/22 Vladimir Gomez MD [address] [place] [address] Primary Center Manager Cardiovascular Disease 03/15/22 Samara Mackey Advanced Practitioner 11/01/23 documented as of this encounter
--- OUTSIDE RECORDS SUMMARY | 2025-02-27 19:30 | XMS_ITS | Encounter Summary ---
Author Organization [facility] Address [address] [place] [address] Care Team Providers Care Real Estate Office Supervisor Name Role Phone Dre Jenkins MD Unavailable +-[phone] Zachary Paredes MD Unavailable +[phone] Angelo Randall MD Unavailable +[phone] Sunil Whitten MD Unavailable [phone] John Bergeron MD Unavailable +[phone] Simon Ruth MD Unavailable [phone] Tani Santoro LPC Unavailable [phone] John Paul MD Unavailable +[phone] John Us MD Unavailable +[phone] Carter Begum MD Unavailable Unavailabl e Geovani Fernandez MD Unavailable + Vladimir Gomez MD Unavailable + Pcp, No Primary Care Provider Unavailabl e Samara Stubbs APRN Primary Care Provi renard Encounter Details Date Type Department Care Team (Late st Contact Info) Description 08/12/2023 Scanned Document [facility] [address] [place] [phone] Provider, Generic External Data Social History Tobacco Use Types Packs/Day Years [...] PT LTG 1 Physical Therapy No Qiana Alejadnra PT Note: Patient to complete Quick Dash [...] on filedocumented in this encounter Care Teams Real Estate Office Supervisor Relationship Specialty Start Date End Date Pcp, No PCP - General General Medicine 07/22/23 11/01/23 Samara Stubbs APRN [address] [place] [address] PCP - General 11/02/23 Dre Jenkins MD Resident Psychiatry, General 10/29/16 Zachary Paredes MD Physician Cardiovascular Disease 10/29/16 Angelo Radnall MD Physician Pulmonary Disease 10/29/16 Sunil Whitten MD Physician Gastroenterology 12/15/16 John Bergeron MD [address] [place] [address] Gastroenterology 08/22/18 Simon Ruth MD [address] [place] [address] Physician Psychiatry, General 12/15/18 Tani Santoro LPC [address] [place] [address] Primer Waterproofing Machine Adjuster Clinical Social Work 12/16/18 John Paul MD [address] [place] [address] Psychiatry, General 12/21/18 John Us MD [address] [place] [address] Psychiatry, General 12/22/18 Carter Begum MD [address] [place] [address] Internal Medicine 10/20/21 Geovani Fernandez MD [address] [place], [place] [address] [phone] Primary Professor Of Early Childhood Education Cardiovascular Disease 03/15/22 Vladimir Gomez MD [address] [place], [place] [phone] Primary Professor Of Early Childhood Education Cardiovascular Disease 03/15/22 Samara Mackey Advanced Practitioner 11/01/23 documented as of this encounter
--- OUTSIDE RECORDS SUMMARY | 2025-02-27 19:30 | XMS_ITS | Encounter Summary ---
Author Organization [facility] Address [address] [place] [phone] Care Team Providers Care Bond Broker Name Role Phone Julio Upton Primary Care Provider Encounter Details Date Type Department Care Team (Late st Contact Info) Description 01/06/2017 Scanned Document [facility] [address] [place], [place] [address] External, Provider Social History Tobacco Use Types Packs/Day Years Used Date Smoking Tobacco: Never Assessed Comments Unknown Sex and Gender Information Value Date Recorded Sex Assigned at Not on file Legal Sex Female 1:15 PM EDT Gender Identity Not on file Sexual Orientation Not on file documented as of this encounter Plan of Treatment Not on file documented as of this encounter Visit Diagnoses Not on filedocumented in this encounter Care Teams Bond Broker Relationship Specialty Start Date End Date Julio Upton [address], [place] [address] PCP - General 10/05/22 documented as of this encounter
--- OUTSIDE RECORDS SUMMARY | 2025-02-27 19:30 | XMS_ITS | Encounter Summary ---
Author Organization [facility] Address [address] [place] [address] Care Team Providers Care Demand Generation Manager Name Role Phone Dre Jenkins MD Unavailable +[phone] Zachary Paredes MD Unavailable +[phone] Angelo Randall MD Unavailable +[phone] Sunil Whitten MD Unavailable [phone] John Bergeron MD Unavailable [phone] Simon Ruth MD Unavailable [phone] Tani Santoro LPC Unavailable [phone] John Paul MD Unavailable +[phone] John Us MD Unavailable +[phone] Carter Begum MD Unavailable Unavailabl e System, Provider Not In Primary Care Provider Un available Geovani Fernandez MD Unavailable + Vladimir Gomez MD Unavailable + Pcp, No Primary Care Provider Unavailabl e Samara Stubbs APRN Primary Care Provi renard Encounter Details Date Type Department Care Team (Late st Contact Info) Description 08/19/2022 Scanned Document [facility] Department of Gastroenterology [address] [place] [phone] OseasKenzie vizcarra PA-C [address] [phone] Social History Tobacco Use Types Packs/Day Years [...] on filedocumented in this encounter Care Teams Demand Generation Manager Relationship Specialty Start Date End Date System, Provider Not In [address] [place] [address] PCP - General 05/11/22 07/21/23 Pcp, No PCP - General General Medicine 07/22/23 11/01/23 Samara Stubbs APRN [address] [place] [address] PCP - General 11/02/23 Dre Jenkins MD Resident Psychiatry, General 10/29/16 Zachary Paredes MD Physician Cardiovascular Disease 10/29/16 Angelo Randall MD Physician Pulmonary Disease 10/29/16 Sunil Whitten MD Physician Gastroenterology 12/15/16 John Bergeron MD [address] [place] [address] Gastroenterology 08/22/18 Simon Ruth MD [address] [place] [address] Physician Psychiatry, General 12/15/18 Tani Santoro LPC [address] [place] [address] Laborer Gold Leaf Clinical Social Work 12/16/18 John Paul MD [address] [place] [address] Psychiatry, General 12/21/18 John Us MD [address] [place] [address] Psychiatry, General 12/22/18 Carter Begum MD [address] [place] [address] Internal Medicine 10/20/21 Geovani Fernandez MD [address] [place] [address] Primary Personnel Quality Assurance Auditor Cardiovascular Disease 03/15/22 Vladimir Gomez MD 420 [place] [address] Primary Personnel Quality Assurance Auditor Cardiovascular Disease 03/15/22 Samara Mackey Advanced Practitioner 11/01/23 documented as of this encounter
--- OUTSIDE RECORDS SUMMARY | 2025-02-27 19:30 | XMS_ITS | Encounter Summary ---
Author Organization [facility] Address [address] [place] [address] Care Team Providers Care Cat Tender Name Role Phone Dre Jenkins MD Unavailable +[phone] Zachary Paredes MD Unavailable +[phone] Angelo Randall MD Unavailable +[phone] Sunil Whitten MD Unavailable [phone] John Bergeron MD Unavailable +[phone] Simon Ruth MD Unavailable [phone] Tani Santoro LPC Unavailable [phone] John Paul MD Unavailable +[phone] John Us MD Unavailable +[phone] Carter Begum MD Unavailable Unavailabl e Geovani Fernandez MD Unavailable + Vladimir Gomez MD Unavailable Samara Stubbs APRN Primary Care Provi renard Encounter Details Date Type Department Care Team (Late st Contact Info) Description 01/13/2024 Scanned Document [facility] NEUROLOGY SCAN Neurology, Scan Social History Tobacco [...] on filedocumented in this encounter Care Teams Cat Tender Relationship Specialty Start Date End Date Samara Stubbs APRN [address] [place] [address] PCP - General 11/02/23 Dre Jenkins MD Resident Psychiatry, General 10/29/16 Zachary Paredes MD Physician Cardiovascular Disease 10/29/16 Angelo Randall MD Physician Pulmonary Disease 10/29/16 Sunil Whitten MD Physician Gastroenterology 12/15/16 John Bergeron MD [address] [place] [address] Gastroenterology 08/22/18 Simon Ruth MD 73 [facility] [place] [address] Physician Psychiatry, General 12/15/18 Tani Santoro LPC 73 [facility] [place] [address] Umbrella Repairer Clinical Social Work 12/16/18 John Paul MD [address] [place] [address] Psychiatry, General 12/21/18 John Us MD [address] [place] [address] Psychiatry, General 12/22/18 Carter Begum MD [address] [place] [phone] Internal Medicine 10/20/21 Geovani Fernandez MD [address] [place] [address] Primary Heel Packer Cardiovascular Disease 03/15/22 Vladimir Gomez MD [address] [place] [address] Primary Heel Packer Cardiovascular Disease 03/15/22 Samara Mackey Advanced Practitioner 11/01/23 documented as of this encounter
--- OUTSIDE RECORDS SUMMARY | 2025-02-27 19:30 | XMS_ITS | Encounter Summary ---
Author Organization [facility] Address [address] [place] [phone] Care Team Providers Care Document Imaging Manager Name Role Phone Julio Upton Primary Care Provider [phone] Encounter Details Date Type Department Care Team (Late st Contact Info) Description 02/19/2017 Scanned Document [facility] [address] [phone] Xavi Kraus MD [address] [place] [phone] Social History Tobacco Use Types Packs/Day Years Used Date Smoking Tobacco: Never Alcohol Use Standard Drinks/Week Comments No 0 (1 standard drink = 0.6 oz pur e alcohol) Comments Unknown Sex and Gender Information Value Date Recorded Sex Assigned at Not on file Legal Sex Female 1:15 PM EDT Gender Identity Not on file Sexual Orientation Not on file documented as of this encounter Plan of Treatment Not on file documented as of this encounter Visit Diagnoses Not on filedocumented in this encounter Care Teams Document Imaging Manager Relationship Specialty Start Date End Date Julio Upton [address], [place] [address] PCP - General 10/05/22 documented as of this encounter
--- OUTSIDE RECORDS SUMMARY | 2025-02-27 19:32 | XMS_ITS | Encounter Summary ---
Author Organization [facility] Address [address] [place] [address] Care Team Providers Care Loss Control Engineer Name Role Phone Dre Jenkins MD Unavailable +[phone] Zachary Paredes MD Unavailable [phone] Angelo Randall MD Unavailable [phone] Rosas Cortez DO Primary Care Provider Unavai Sunil Gibson MD Unavailable [phone] Cosme Elkins MD Primary Care Prov ider Unavailable Julio Upton MD Primary Care Provider Unava ilable Sara Jacobson LCSW Unavailable +[phone] John Bergeron MD Unavailable +[phone] Simon Ruth MD Unavailable [phone] Tani Santoro LPC Unavailable [phone] John Paul MD Unavailable +[phone] John Us MD Unavailable [phone] Pcp, [...] Care Team (Late st Contact Info) Description 10/31/2016 Scanned Document [facility] [place] [address] [place] [phone] Rosas Cortez DO Social History Tobacco Use Types Packs/Day Years [...] on filedocumented in this encounter Care Teams Loss Control Engineer Relationship Specialty Start Date End Date Rosas Cortez DO PCP - General Family Medicine 10/29/16 12/14/16 Cosme Elkins MD PCP - General Family Medicine 12/15/16 03/24/17 Julio Upton MD PCP - General Internal Medicine 05/24/17 10/23/20 Pcp, No PCP - General General Medicine 10/24/20 04/29/22 Julio Upton MD PCP - General Internal Medicine 04/30/22 05/05/22 System, Provider Not In PCP - General 05/11/22 07/21/23 Pcp, No PCP - General General Medicine 07/22/23 11/01/23 Samara Stubbs APRN [address] [place] [address] PCP - General 11/02/23 Dre Jenkins MD Resident Psychiatry, General 10/29/16 Zachary Paredes MD Physician Cardiovascular Disease 10/29/16 Angelo Randall MD Physician Pulmonary Disease 10/29/16 Sunil Whitten MD Physician Gastroenterology 12/15/16 Sara Jacobson, [facility] [address] [place] [address] [address] [facility] Community Lithograph Operator 04/22/18 04/12/19 John Bergeron MD [address] [place] [address] Gastroenterology 08/22/18 Simon Ruth MD [address] [place] [address] Physician Psychiatry, General 12/15/18 Tani Santoro LPC [address] [place] [address] Resident Engineer Clinical Social Work 12/16/18 John Paul MD [address] [place] [address] Psychiatry, General 12/21/18 John Us MD [address] [place] [address] Psychiatry, General 12/22/18 Carter Begum MD Internal Medicine 10/20/21 Geovani Fernandez MD [address] [place] [address] Primary Department Store Manager Cardiovascular Disease 03/15/22 Vladimir Gomez MD [address] [place] [address] Primary Department Store Manager Cardiovascular Disease 03/15/22 Samara Mackey Advanced Practitioner 11/01/23 documented as of this encounter
--- OUTSIDE RECORDS SUMMARY | 2025-02-27 19:32 | XMS_ITS | Encounter Summary ---
Author Organization [facility] Address [address] [place] [address] Care Team Providers Care Lunch Cook Name Role Phone Dre Jenkins MD Unavailable +[phone] Zachary Paredes MD Unavailable [phone] Angelo Randall MD Unavailable [phone] Rosas Cortez DO Primary Care Provider Unavai Sunil Gibson MD Unavailable [phone] Cosme Elkins MD Primary Care Prov ider Unavailable Julio Upton MD Primary Care Provider Unava ilable Sara Jacobson LCSW Unavailable +[phone] John Bergeron MD Unavailable +[phone] Simon Ruth MD Unavailable [phone] Tani Santoro LPC Unavailable [phone] John Paul MD Unavailable +[phone] John Us MD Unavailable [phone] Pcp, [...] st Contact Info) Description 10/31/2016 Scanned Document [facility] [place] [address] [place] [phone] Rosas Cortez DO Social History Tobacco [...] on filedocumented in this encounter Care Teams Lunch Cook Relationship Specialty Start Date End Date Rosas [...] Medicine 07/22/23 11/01/23 Samara Stubbs APRN [address] [place] [address] PCP - General 11/02/23 Dre Jenkins MD Resident Psychiatry, General 10/29/16 Zachary Paredes MD Physician Cardiovascular Disease 10/29/16 Angelo Randall MD Physician Pulmonary Disease 10/29/16 Sunil Whitten MD Physician Gastroenterology 12/15/16 Sara Jacobson, [facility] [address] [place] [address] [address] [facility] Community Dividend Deposit Voucher Clerk 04/22/18 04/12/19 John Bergeron MD [address] [place] [address] Gastroenterology 08/22/18 Simon Ruth MD [address] [place] [address] Physician Psychiatry, General 12/15/18 Tani Santoro LPC [address] [place] [address] Scaleman Clinical Social Work 12/16/18 John Paul MD [address] [place] [address] Psychiatry, General 12/21/18 John Us MD [address] [place] [address] Psychiatry, General 12/22/18 Carter Begum MD Internal Medicine 10/20/21 Geovani Fernandez MD [address] [place] [address] Primary Stucco Plasterer Cardiovascular Disease 03/15/22 Vladimir Gomez MD [address] [place] [address] Primary Stucco Plasterer Cardiovascular Disease 03/15/22 Samara Mackey Advanced Practitioner 11/01/23 documented as of this encounter
--- OUTSIDE RECORDS SUMMARY | 2025-02-27 19:32 | XMS_ITS | Encounter Summary ---
Author Organization [facility] Address [address] [place] [phone] Care Team Providers Care Menagerie Superintendent Name Role Phone Julio Upton Primary Care Provider [phone] Encounter Details Date Type Department Care Team (Late st Contact Info) Description 05/12/2017 Scanned Document [facility] [address] [place], [place] [address] Toñito Lewis, DO [address] [facility] [address] [place] [address] Social History Tobacco Use Types Packs/Day Years [...] on filedocumented in this encounter Care Teams Menagerie Superintendent Relationship Specialty Start Date End Date Julio Upton [address], [place] [address] PCP - General 10/05/22 documented as of this encounter
--- OUTSIDE RECORDS SUMMARY | 2025-02-27 19:32 | XMS_ITS | Encounter Summary ---
Author Organization [facility] Address [address] [place] [address] Care Team Providers Care Electrical Construction Project Manager Name Role Phone Dre Jenkins MD Unavailable +[phone] Zachary Paredes MD Unavailable [phone] Angelo Randall MD Unavailable [phone] Sunil Whitten MD Unavailable [phone] Cosme Elkins MD Primary Care Prov ider Unavailable Julio Upton MD Primary Care Provider Unava ilable Sara Jacobson LCSW Unavailable +[phone] John Bergeron MD Unavailable [phone] Simon Ruth MD Unavailable [phone] Tani Santoro LPC Unavailable [phone] John Paul MD Unavailable +[phone] John Us MD Unavailable [phone] Pcp, No Primary Care Provider UnavailCarter Pagan MD Unavailable UnavailJulio Brady MD Primary Care Provider Unava ilable System, Provider Not In Primary Care Provider Un available Geovani Fernandez MD Unavailable + Vladimir Gomez MD Unavailable + Pcp, No Primary Care Provider Unavailal e Samara Stubbs APRN Primary Care Provi renard Encounter Details Date Type Department Care Team (Late st Contact Info) Description 02/19/2017 Scanned Document [address] [phone] Provider, Generic Social History Tobacco Use Types [...] on filedocumented in this encounter Care Teams Electrical Construction Project Manager Relationship Specialty Start Date End Date Cosme Elkins MD PCP - General Family Medicine 12/15/16 03/24/17 Julio Upton MD PCP - General Internal Medicine 05/24/17 10/23/20 Pcp, No PCP - General General Medicine 10/24/20 04/29/22 Julio Upton MD PCP - General Internal Medicine 04/30/22 05/05/22 System, Provider Not In PCP - General 05/11/22 07/21/23 Pcp, No PCP - General General Medicine 07/22/23 11/01/23 Samara Stubbs APRN [address] [place] [address] PCP - General 11/02/23 Dre Jenkins MD Resident Psychiatry, General 10/29/16 Zachary Paredes MD Physician Cardiovascular Disease 10/29/16 Angelo Randall MD Physician Pulmonary Disease 10/29/16 Sunil Whitten MD Physician Gastroenterology 12/15/16 Sara Jacobson, [facility] [address] [place] [address] [facility] 4 [place] [address] [facility] Manager 04/22/18 04/12/19 John Bergeron MD [address] [place] [address] Gastroenterology 08/22/18 Simon Ruth MD [address] [place] [address] Physician Psychiatry, General 12/15/18 Tani Santoro LPC [address] [place] [address] Principal Mechanical Engineer Clinical Social Work 12/16/18 John Paul MD [address] [place] [address] Psychiatry, General 12/21/18 John Us MD [address] [place] [address] Psychiatry, General 12/22/18 Carter Begum MD Internal Medicine 10/20/21 Geovani Fernandez MD [address] [place] [address] Primary Seat Covers Trimmer Cardiovascular Disease 03/15/22 Vladimir Gomez MD 420 [facility] [place] [address] Primary Seat Covers Trimmer Cardiovascular Disease 03/15/22 Samara Mackey Advanced Practitioner 11/01/23 documented as of this encounter
--- OUTSIDE RECORDS SUMMARY | 2025-02-27 19:32 | XMS_ITS | Clinical Summary ---
Author Organization [facility] Address [address] [place], [place] [address], [place] [address] Phone Care Team Providers Care Compliance Reviewer Name Role Phone Samara Bonner COMMIS CHEF Primary C are Provider Allergies Active Allergy Reactions Criticality Noted Date Comments Azithromycin Hives High 06/26/2023 Bee Pollen Other Medium 10/18/2015 Robert Anaphylaxis High 02/19/2017 Grass Pollen Sneezing 06/29/2016 Ibuprofen Palpitations High 01/17/2018 Bleeding Iodinated Contrast Media Anaphylaxis High 01/06/2017 Latex Anaphylaxis High 11/10/2017 Levalbuterol Other 11/22/2015 Mite Extract Other Medium 10/18/2015 Other Anaphylaxis High 10/18/2015 Cherries Shellfish Containing Products Shortness of breath High 10/29/2016 Shellfish Derived 01/06/2017 Anaphylaxis w/contrast dye Silver Hives Medium 03/09/2018 Medications acetaminophen-code ine (TYLENOL #3) 300-30 mg per tablet Acetaminophen-Cod eine #3 300-30 MG Oral Tablet QTY: 30 tablet Days: 3 Refills: 0 Written: 05/04/20 Patient Instructions: 1-2 every 6-8 hours as needed 12/15/19 24 Active carbidopa-levodopa (SINEMET) 10-100 mg per tablet 01/11/20 24 Active esketamine (Spravato) 28 mg spray,non-aerosol Spravato (56 MG Dose) 28 MG/DEVICE Nasal Solution Therapy Pack QTY: 4 Days: 7 Refills: 0 Written: 12/08/23 Patient Instructions: 12/15/19 24 Active fexofenadine (MAI) 180 mg tablet Take 1 tablet (180 mg total) by mouth daily. Active glipiZIDE (GLUCOTROL XL) 10 mg 24 hr tablet glipiZIDE ER 10 MG Oral Tablet Extended Release 24 Hour QTY: 30 Days: 30 Refills: 0 Written: 12/08/23 Patient Instructions: 12/08/19 24 Active hydrOXYzine pamoate (VISTARIL) 50 mg capsule hydrOXYzine Pamoate 50 MG Oral Capsule QTY: 180 Days: 90 Refills: 0 Written: 11/30/23 Patient Instructions: 07/19/19 24 Active isosorbide mononitrate (IMDUR) 60 mg 24 hr tablet Take 90 mg by mouth 2 (two) times a day. Active levalbuterol (Xopenex) 1.25 mg/3 mL nebulizer solution USE 1 VIAL VIA NEBULIZER EVERY 8 HOURS DIRECTED 01/26/20 17 Active levalbuterol (XOPENEX HFA) 45 mcg/actuation inhaler INHALE 2 PUFFS BY MOUTH EVERY 4 TO 6 HOURS NEEDED 09/20/19 19 Active levothyroxine (SYNTHROID, LEVOTHROID) 50 mcg tablet Take 1 tablet (50 mcg total) by mouth every morning on an empty stomach. Active liothyronine (CYTOMEL) 25 mcg tablet Cytomel 25 MCG 08/19/19 24 Active lisdexamfetamine (Vyvanse) 10 MG capsule Take 1 capsule (10 mg total) by mouth 1 (one) time each day in the morning. Max Daily Amount: 10 mg 10/22/19 19 Active LORazepam (ATIVAN) 1 mg tablet 07/29/19 23 Active metoprolol succinate (TOPROL-XL) 100 mg 24 hr tablet Take 2 tablets (200 mg total) by mouth daily. Active nitroglycerin (NITRODUR) 0.4 mg/hr APPLY 1 PATCH ONTO THE SKIN EVERY DAY 09/17/19 22 Active nitroglycerin (NITROSTAT) 0.[address] 1 tablet (0.4 mg total) under the tongue every 5 (five) minutes as needed for chest pain. Active omeprazole (PriLOSEC) [address] capsule Omeprazole 40 MG 07/23/19 24 Active ondansetron (ZOFRAN) 4 mg tablet TAKE 1 TABLET BY MOUTH EVERY 4 TO 6 HOURS NEEDED FOR NEXT 5 DAYS 11/03/19 19 Active pantoprazole (PROTONIX) 40 mg EC tablet Protonix 40 MG Oral Tablet Delayed Release QTY: 0 tablet Days: 0 Refills: 0 Written: 12/13/23 Patient Instructions: 12/14/19 24 Active ramelteon (ROZEREM) 8 mg tablet Take 1 tablet (8 mg total) by mouth every night at bedtime. Active sertraline (ZOLOFT) 100 mg tablet Take 1 tablet (100 mg total) by mouth 1 (one) time each day. 07/26/19 19 Active traZODone (DESYREL) 300 mg tablet 08/21/19 18 Active ubrogepant (Ubrelvy) 100 mg tablet 11/13/19 23 Active valACYclovir (VALTREX) 1 gram tablet 11/18/19 19 Active venlafaxine (EFFEXOR) 37.5 mg tablet Take 1 tablet (37.5 mg total) by mouth 2 (two) times a day. Active Qvar RediHaler 80 mcg/actuation HFA aerosol breath activated inhaler 01/11/20 24 Active cyclobenzaprine (FLEXERIL) 10 mg tablet 11/09/19 24 Active DULoxetine (CYMBALTA) [address] capsule 10/19/19 24 Active Aimovig Autoinjector 140 mg/mL injection INJECT ONCE EVERY 28 DAYS 01/04/20 24 Active ezetimibe (ZETIA) 10 mg tablet Take 1 tablet (10 mg total) by mouth 1 (one) time each day. 01/28/20 24 Active famotidine (PEPCID) 20 mg tablet 12/14/19 24 Active FLUoxetine (PROzac) 40 mg capsule 01/11/20 24 Active ipratropium-albute roL (DUONEB) 0.5-2.5 mg/3 mL nebulizer solution USE ONE VIAL EVERY 4 HOURS NEEDED FOR COUGH 06/22/19 24 Active ketoconazole (NIZORAL) 2 % cream Apply 1 Application topically 2 (two) times a day. APPLY TO AFFECTED AREA 01/28/20 24 Active losartan (COZAAR) 50 mg tablet 10/19/19 24 Active metoclopramide (REGLAN) 10 mg tablet 01/30/20 24 Active Savella 12.5 mg (5)-25 mg(8)-50 mg(42) tablets,dose pack TAKE 12.5 MG BY MOUTH FOR 5 DAYS TAKE 25 MG BY MOUTH DAILY FOR 8 DAYS TAKE 50 MG DAILY FOR 42 DAY 01/12/20 24 Active ondansetron ODT (ZOFRAN-ODT) 4 mg disintegrating tablet TAKE ONE TAB BY MOUTH EVERY 4 TO 6 HOURS 01/03/20 24 Active rizatriptan (MAXALT) 10 mg tablet 01/30/20 24 Active Sutab 1.479-0.188- 0.225 gram tablet 12 TABLETS ONE DOSE ON DAY PRIOR TO PROCEDURE AND 12 TABLETS ONE DOSE ON THE DAY OF PROCEDURE 07/23/19 24 Active cetirizine (ZyrTEC) 10 mg tablet Take 1 tablet (10 mg total) by mouth daily. Active fluticasone propionate (FLONASE) 50 mcg/actuation nasal spray 08/21/19 18 Active fluticasone furoate-vilanteroL (Breo Ellipta) 100-25 mcg/dose inhaler 08/21/19 18 Active ipratropium (ATROVENT) 42 mcg (0.06 %) nasal spray 11/21/19 23 Active metoprolol tartrate (LOPRESSOR) 75 mg tablet 08/21/19 18 Active ofloxacin (FLOXIN) 0.3 % otic solution 06/12/19 18 Active pentosan polysulfate (Elmiron) 100 mg capsule 10/30/19 23 Active prochlorperazine (COMPAZINE) 10 mg tablet Take 1 tablet (10 mg total) by mouth 2 times daily. 11/11/19 23 Active ranolazine (Ranexa) 500 mg 12 hr tablet 08/21/19 18 Active SUMAtriptan (IMITREX) 100 mg tablet Take by mouth. 07/22/19 23 Active tobramycin-dexAMET Hasone (TOBRADEX) ophthalmic suspension Administer into affected eye(s). 11/11/19 23 Active albuterol HFA (PROAIR HFA ; PROVENTIL HFA ; VENTOLIN HFA) 90 mcg/actuation inhaler Albuterol Sulfate HFA 108 (90 Base) MCG/ACT 08/19/19 24 Active baclofen (LIORESAL) 10 mg tablet Baclofen 10 MG 08/19/19 24 Active budesonide-formote roL (Symbicort) 160-4.5 mcg/actuation inhaler Symbicort 160-4.5 MCG/ACT 08/19/19 24 Active citalopram (CeleXA) 40 mg tablet Take 40 mg by oral route. 04/03/19 23 Active doxycycline (MONODOX) 100 mg capsule Take 1 capsule (100 mg total) by mouth 2 (two) times a day. 07/11/19 24 Active HYDROcodone-acetam inophen (NORCO) 5-325 mg per tablet HYDROcodone-Aceta minophen 5-325 MG Oral Tablet QTY: 20 tablet Days: 6 Refills: 0 Written: 04/27/22 Patient Instructions: 1 every 6-8 hours as needed 04/03/19 23 Active lamoTRIgine (LaMICtal) 100 mg tablet 05/15/19 23 Active levocetirizine (XYZAL) 5 mg tablet Take 5 mg by oral route. 04/03/19 23 Active lidocaine (LIDODERM) 5 % patch Place 1 patch on the skin. 04/03/19 23 Active aluminum-magnesium hydroxide-simethic one (MAALOX) 200-200-20 mg/5 mL suspension 06/05/19 22 Active aluminum-magnesium hydroxide 200-200 mg/5 mL suspension Take 10 mL every 6 hours by oral route. 04/03/19 23 Active methylPREDNISolone (MEDROL) 4 mg tablet Take by mouth See administration instructions. 07/10/19 23 Active plecanatide (Trulance) 3 mg tablet 04/03/19 23 Active Active Problems Problem Noted Date Diagnosed Date Type 2 diabetes mellitus wit h hyperglycemia, without long-term current use of insulin 02/03/2024 Chronic cholecystitis 01/17/2024 Left shoulder pain 11/15/2018 Right shoulder pain 11/15/2018 Rotator cuff disorder, right 09/26/2018 Chronic bilateral low back pain without sciatica 01/17/2018 Obesity (BMI 30.0-34.9) 01/17/2018 Trochanteric bursitis of both hips 01/17/2018 Major depressive disorder, recurrent, moderate 1 04/13/2016 Post traumatic stress disorder (PTSD) 02/11/2017 Encounters Date Type Department Care Team Description 02/09/2025 [facility] [address] [place] [address] [place] [address] Mathew Molina MD from Last 3 Months Surgical History Surgery Date Site/Laterality Comments ECTOPIC SURGERY PROCEDURE:ECTOPIC SURGERY CARDIAC CATHETERIZATION PROCEDURE:CARDIAC CATHETERIZATION;COMMENT:x3- no stents COLONOSCOPY PROCEDURE:COLONOSCOPY CHOLECYSTECTOMY PROCEDURE:CHOLECYSTECTOMY;COMMEN T:2016 HYSTERECTOMY PROCEDURE:HYSTERECTOMY;COMMENT:2 008 CHOLECYSTECTOMY 01/06/2017 N/A PROCEDURE:CHOLECYSTECTOMY;COMMEN T:Procedure: LAPAROSCOPY CHOLECYSTECTOMY; Surgeon: Chad Turner MD; Location: [facility] MAIN OPERATING ROOM; Service: General; Laterality: N/A; Medical History Medical History Date Comments Osteoarthritis DX:Osteoarthriti s GERD (gastroesophageal reflux disease) DX:GERD (gastroesophageal reflux disease) Hypertension DX:Hypertension Angina pectoris (CMS/HCC V24) DX :Angina pectoris (HCC) Asthma DX:Asthma Anxiety DX:Anxiety Hypothyroidism DX:Hypothyroidis m Insomnia DX:Insomnia IBS (irritable colon syndrome) D X:IBS (irritable colon syndrome) High blood pressure DX:High bloo d pressure Kidney stone DX:Kidney stone; COMMENT:hx Infectious viral hepatitis DX:In fectious viral hepatitis;COMMENT:hx hep A as child Family History Medical History Relation Name Comments Heart attack Father Hyperlipidemia Father Hypertension Father Throat cancer Father Colon cancer Neg Hx Relation Name Status Comments Father Social History Tobacco Use Types Packs/Day Years Used Date Smoking Tobacco: Never Smokeless Tobacco: Never Alcohol Use Standard Drinks/Week Comments No 0 (1 standard drink = 0.6 oz pur e alcohol) Comments Unknown Sex and Gender Information Value Date Recorded Sex Assigned at Not on file Legal Sex Female 1:49 AM EST Gender Identity Not on file Sexual Orientation Not on file Last Filed Vital Signs Vital Sign Reading Time Taken Comments Blood Pressure 116/78 02/03/2024 10:56 AM EST Pulse 72 02/03/2024 10:56 AM EST Temperature - - Respiratory Rate - - Oxygen Saturation - - Inhaled Oxygen Concentration - - Weight 86.2 kg (190 lb) 02/03/2024 10:56 AM EST Height 157.5 cm (5' 2 ) 01/14/2024 2:02 PM EDT Body Mass Index 34.75 01/14/2024 2:02 PM EDT Plan of Treatment Health Maintenance Due Date Last Done Comments Breast Cancer Screening 1954 Colorectal Cancer Screening: Colonoscopy 1955 Drug Screen 1955 Non-Opioid Controlled Substance Agreement 1954 Diabetes: Annual Foot Exam 1964 Diabetes: Annual Retina Eye Exam 1964 Pneumococcal Vaccine: 50+ Years (1 of 2 - PCV) 1973 RSV Immunization Adult Patients (1 - Risk 50-74 years 1-dose series) 2004 Zoster Vaccines (1 of 2) 2004 Falls Risk Assessment 02/15/2022 Hepatitis C Screening 02/15/2022 Medicare Annual Wellness Visit 02/15/2022 Social Influencers of Health Screening 02/15/2022 Diabetes: Annual Urine Albumin-Creatinine Ratio (uACR) 01/12/2024 Depression Screening 03/15/2024 COVID-19 Vaccine (2 - season) 2024 11/07/2020 Influenza Vaccine (#1) 2024 Diabetes: Blood Sugar Control Test (HGBA1C) 01/04/2025 07/05/2024 Diabetes: Annual GFR (Glomerular Filtration Rate) 07/05/2025 07/05/2024, 11/06/2022, 11/06/2022, Additional history exists Hypertension/CHF/CAD Annual BMP Blood Test 07/05/2025 07/05/2024, 11/06/2022, 11/06/2022, Additional history exists Osteoporosis Screening (Bone Density Screening) 01/26/2029 01/26/2019 DTaP,Tdap,and Td Vaccines (2 - Td or Tdap) 05/31/2029 06/01/2019 Cholesterol Screening (Lipid Panel) 07/05/2029 07/05/2024 HIB Vaccines Aged Out No longer eligi ble based on patient's age to complete this topic HPV Vaccines Aged Out No longer eligi ble based on patient's age to complete this topic Hepatitis A Vaccines Aged Out No long er eligible based on patient's age to complete this topic Hepatitis B Vaccines Aged Out No long er eligible based on patient's age to complete this topic IPV Vaccines Aged Out No longer eligi ble based on patient's age to complete this topic MMR Vaccines Aged Out No longer eligi ble based on patient's age to complete this topic Meningococcal ACWY Vaccine Aged Out N o longer eligible based on patient's age to complete this topic Meningococcal B Vaccine Aged Out No l onger eligible based on patient's age to complete this topic RSV Immunization Patients Under 20 months Aged Out No longer eligible based on patient's age to complete this topic Varicella Vaccines Aged Out No longer eligible based on patient's age to complete this topic Procedures Procedure Name Priority Date/Time Associated Diagnosis Comments BASIC METABOLIC PANEL Routine 07/05/2024 12:30 PM EDT HEMOGLOBIN A1C Routine 07/05/2024 12:30 PM EDT LIPID PANEL WITH REFLEX TO DIRECT LDL Routine 07/05/2024 12:30 PM EDT from Last 3 Months or Most Recently Relevant to Health Maintenance Results * (ABNORMAL) Lipid panel with reflex to direct LDL (07/05/2024 12:30 PM EDT) Cholesterol Total 160 <200 mg/dL [facility] HDL Cholesterol 54 > OR = 50 mg/dL [facility] Triglycerides 173(H) <150 mg/dL [facility] LDL Cholesterol 79 mg/dL (calc) [facility] Comment: Reference range: <100 Desirable range <100 mg/dL for primary prevention; <70 mg/dL for patients with CHD or diabetic patients with > or = 2 CHD risk factors. LDL-C is now calculated using the Toñito-Ant calculation, which is a validated novel method providing better accuracy than the Friedewald equation in the estimation of LDL-C. Toñito FAN et al. ZEYAD. 2013;310(19): 3391-9161 (http://education.[employer] [place]/faq/AUC930) Chol/HDLC Ratio 3.0 <5.0 (calc) [facility] Non HDL Cholesterol 106 <130 mg/dL (calc) [facility] Comment: For patients with diabetes plus 1 major ASCVD risk factor, treating to a non-HDL-C goal of <100 mg/dL (LDL-C of <70 mg/dL) is considered a therapeutic option. 07/05/2024 12:3 0 PM EDT 07/05/2024 12:30 PM EDT Vasu HOLLINGSWORTH (HYUN) - 07/06/2024 8:18 AM EDT FASTING:YES FASTING: YES Mathew Molina MD LAB BLOOD ORDERABLES Final Resul t Performing Organization Address [facility] de Phone Number JOSE HOLLING[facility]ORTH (HYUN) [facility] [address] [place] [phone] * (ABNORMAL) Hemoglobin A1c (07/05/2024 12:30 PM EDT) Hemoglobin A1C 7.3(H) <5.7 % [facility] Comment: For someone without known diabetes, a hemoglobin A1c value of 6.5% or greater indicates that they may have diabetes and this should be confirmed with a follow-up test. For someone with known diabetes, a value <7% indicates that their diabetes is well controlled and a value greater than or equal to 7% indicates suboptimal control. A1c targets should be individualized based on duration of diabetes, age, comorbid conditions, and other considerations. Currently, no consensus exists regarding use of hemoglobin A1c for diagnosis of diabetes for children. 07/05/2024 12:3 0 PM EDT 07/05/2024 12:30 PM EDT Vasu GARCIA [facility]ANK[employer] EDEL (HYUN) - 07/06/2024 8:18 AM EDT FASTING:YES FASTING: YES us Mathew Molina MD LAB BLOOD ORDERABLES Final Resul t Performing Organization Address [facility] Co de Phone Number JOSE HOLLINGSWORTH (HYUN) [facility] [address] [place] [phone] * (ABNORMAL) Basic metabolic panel (07/05/2024 12:30 PM EDT) Glucose 204(H) 65 - 99 mg/dL [facility] Comment: Fasting reference interval For someone without known diabetes, a glucose value >125 mg/dL indicates that they may have diabetes and this should be confirmed with a follow-up test. Urea Nitrogen (BUN) 24 7 - 25 mg/dL [facility] Creatinine 0.90 0.50 - 1.05 mg/dL [facility] eGFR 69 > OR = 60 mL/min/1. 73m2 [facility] BUN/Creatinine Ratio SEE NOTE: - 22 (calc) [facility] Comment: Not Reported: BUN and Creatinine are within reference range. Sodium 136 135 - 146 mmol/L [facility] Potassium 4.5 3.5 - 5.3 mmol/L [facility] Chloride 99 98 - 110 mmol/L [facility] Carbon Dioxide 27 20 - 32 mmol/L [facility] Calcium 9.3 8.6 - 10.4 mg/dL [facility] 07/05/2024 12:3 0 PM EDT 07/05/2024 12:30 PM EDT Narrative [facility] (HYUN) - 07/06/2024 8:18 AM EDT FASTING:YES FASTING: YES Mathew Molina MD LAB BLOOD ORDERABLES Final Resul t [facility] (HYUN) [facility] [address] [place] [address] from Last 3 Months or Most Recently Relevant to Health Maintenance Insurance MEDICAID [place] UNITED HEALTH[employer] MEDICARE [place]ICA[place] - [place] Member Subscriber Plan / Payer (Ef fective 2024-Present) Name:Emmie Gregorioudmila Relation to Subscriber:Self Name:Lilly Gregorio Payer ID:[id number] Group ID:Not on file Type:Not on file Address: [address] [id number] [employer] MEDICARE Care Teams Compliance Reviewer Relationship Specialty Start Date End Date Samara Bonner FNP [address] [place] [address] PCP - General 11/06/22
--- OUTSIDE RECORDS SUMMARY | 2025-02-27 19:32 | XMS_ITS | Clinical Summary ---
Author Organization [facility] Address [address] [place] [address] Care Team Providers Care Bulb Grader Name Role Phone Julio Upton MD Primary Care Provider Radha Tyrese Singh DO Unavailable [phone] Allergies No known active allergies Medications metoprolol succinate XL (TOPROL-XL) 200 mg 24 hr tablet Take 200 mg by mouth 2 times daily. 0 Active isosorbide mononitrate (IMDUR) 60 mg 24 hr tablet Imdur 60 mg tablet,exten ded release 1 Active losartan (COZAAR) 50 mg tablet 1 Active valACYclovir (VALTREX) 500 mg tablet 1 Active traZODone (DESYREL) 50 mg tablet 1 Active beclomethasone dipropionate (Qvar RediHaler) 80 mcg/actuation HFA aerosol breath activated Inhale 2 puffs 2 times daily. 1 Active esomeprazole (NexIUM) 20 mg capsule Take 20 mg by mouth Daily before breakfast. Active Active Problems No known active problems Social History Tobacco Use Types Packs/Day Years Used Date Smoking Tobacco: Never Assessed Comments Unknown Sex and Gender Information Value Date Recorded Sex Assigned at Not on file Legal Sex Female 12:09 PM EST Gender Identity Not on file Sexual Orientation Not on file Plan of Treatment Health Maintenance Due Date Last Done Comments Bone Density Screening 1954 Breast Cancer Screening 1954 CT Colonography 1954 Colonoscopy 1954 Colorectal Cancer Screening 1954 FIT-DNA (Cologuard) 1954 FIT 1954 FOBT 1954 Flex Sigmoidoscopy - 5y 1954 HIV Screening 1954 Pneumococcal Vaccine, 50+ Ye ars (1 of 1 - PCV) 2004 Zoster Vaccines (1 of 2) 2004 COVID-19 Vaccine (1 - 2024-2 6 season) 2024 Influenza Vaccine (#1) 2024 DTaP,Tdap,and Td Vaccines (2 - Td or Tdap) 05/31/2029 06/01/2019 HPV Vaccines Aged Out No longer eligi ble based on patient's age to complete this topic Hepatitis A Vaccines Aged Out No long er eligible based on patient's age to complete this topic Meningococcal Vaccine Aged Out No benjamin rahul eligible based on patient's age to complete this topic Insurance [facility] Care Teams Bulb Grader Relationship Specialty Start Date End Date Julio Upton MD PCP - General Internal Medicine 04/05/19 Tyrese Kimball DO [address] [place] [address] 04/05/19
--- OUTSIDE RECORDS SUMMARY | 2025-02-27 19:32 | XMS_ITS | Encounter Summary ---
Author Organization [facility] Address [address] [place] [address] Care Team Providers Care Administrative Technician Name Role Phone Dre Jenkins MD Unavailable [phone] Zachary Paredes MD Unavailable [phone] Angelo Randall MD Unavailable [phone] Sunil Whitten MD Unavailable [phone] Julio Upton MD Primary Care Provider Unava ilable Sara Jacobson LCSW Unavailable [phone] John Bergeron MD Unavailable [phone] Simon Ruth MD Unavailable [phone] Tani Santoro LPC Unavailable [phone] John Paul MD Unavailable [phone] [...] Care Team (Late st Contact Info) Description 10/25/2017 Scanned Document [address] [place] [id number] Provider, Generic Social History Tobacco Use Types [...] on filedocumented in this encounter Care Teams Administrative Technician Relationship Specialty Start Date End Date Julio Upton MD PCP - General Internal Medicine 05/24/17 10/23/20 Pcp, No PCP - General General Medicine 10/24/20 04/29/22 Julio Upton MD PCP - General Internal Medicine 04/30/22 05/05/22 System, Provider Not In PCP - General 05/11/22 07/21/23 Pcp, No PCP - General General Medicine 07/22/23 11/01/23 Samara Stubbs APRN [address] [place] [id number] PCP - General 11/02/23 Dre Jenkins MD Resident Psychiatry, General 10/29/16 Zachary Paredes MD Physician Cardiovascular Disease 10/29/16 Angelo Randall MD Physician Pulmonary Disease 10/29/16 Sunil Whitten MD Physician Gastroenterology 12/15/16 Sara Jacobson, [facility] [address] [facility] [address] [place] [address] [facility] Community Machine Bobbin Winder 04/22/18 04/12/19 John Bergeron MD [address] [place] [id number] Gastroenterology 08/22/18 Simon Ruth MD [address] [place] [address] Physician Psychiatry, General 12/15/18 Tani Santoro LPC [address] [place] [address] Research Manufacturing Operator Clinical Social Work 12/16/18 John Paul MD [address] [place] [address] Psychiatry, General 12/21/18 John Us MD [address] [place] [id number] Psychiatry, General 12/22/18 Carter Begum MD Internal Medicine 10/20/21 Geovani Fernandez MD [address] [place] [id number] Primary Home Health Clinical Supervisor Cardiovascular Disease 03/15/22 Vladimir Gomez MD [address] [place] [address] Primary Home Health Clinical Supervisor Cardiovascular Disease 03/15/22 Samara Mackey Advanced Practitioner 11/01/23 documented as of this encounter
--- OUTSIDE RECORDS SUMMARY | 2025-02-27 19:32 | XMS_ITS | Encounter Summary ---
Author Organization [facility], Located Within [facility] Address [address] [place] [address] Care Team Providers Care Radial Drill Press Operator For Plastic Name Role Phone Dre Jenkins MD Unavailable +[phone] Zachary Paredes MD Unavailable [phone] Angelo Randall MD Unavailable [phone] Rosas Cortez DO Primary Care Provider Unavai Sunil Gibson MD Unavailable [phone] Cosme Elkins MD Primary Care Prov ider Unavailable Julio Upton MD Primary Care Provider Unava ilable Sara Jacobson LCSW Unavailable +[phone] John Bergeron MD Unavailable +[phone] Simon Ruth MD Unavailable [phone] Tani Santoro LPC Unavailable [phone] John Paul MD Unavailable [phone] John Us MD Unavailable [phone] Pcp, [...] Care Team (Late st Contact Info) Description 10/29/2016 Scanned Document [facility] [place] [address] [place] [phone] Provider, Generic Social History Tobacco Use Types [...] on filedocumented in this encounter Care Teams Radial Drill Press Operator For Plastic Relationship Specialty Start Date End Date Rosas [...] Medicine 07/22/23 11/01/23 Samara Stubbs APRN [address] [place] [address] PCP - General 11/02/23 Dre Jenkins MD Resident Psychiatry, General 10/29/16 Zachary Paredes MD Physician Cardiovascular Disease 10/29/16 Angelo Randall MD Physician Pulmonary Disease 10/29/16 Sunil Whitten MD Physician Gastroenterology 12/15/16 [facility] [address] [employer] [employer] [address] [address] [facility] Community Prescription Clerk 04/22/18 04/12/19 John Bergeron MD [address] [place] [address] Gastroenterology 08/22/18 Simon Ruth MD [address] [place] [address] Physician Psychiatry, General 12/15/18 Tani Santoro LPC [address] [place] [address] Ems Manager Clinical Social Work 12/16/18 John Paul MD [address] [place] [address] Psychiatry, General 12/21/18 John Us MD [address] [place] [address] Psychiatry, General 12/22/18 Carter Begum MD Internal Medicine 10/20/21 Geovani Fernandez MD [address] [place] [address] Primary Mechanical Specialist Cardiovascular Disease 03/15/22 Vladimir Gomez MD [address] [place] [address] Primary Mechanical Specialist Cardiovascular Disease 03/15/22 Samara Mackey Advanced Practitioner 11/01/23 documented as of this encounter
--- OUTSIDE RECORDS SUMMARY | 2025-02-27 19:32 | XMS_ITS | Encounter Summary ---
Author Organization [facility] Address [address] [place] [address] Care Team Providers Care Single Wire Saw Operator Name Role Phone Dre Jenkins MD Unavailable +[phone] Zachary Paredes MD Unavailable [phone] Angelo Randall MD Unavailable [phone] Sunil Whitten MD Unavailable [phone] Julio Upton MD Primary Care Provider Unava ilable Sara Jacobson LCSW Unavailable +[phone] John Bergeron MD Unavailable [phone] Simon Ruth MD Unavailable [phone] Tani Santoro LPC Unavailable [phone] John Paul MD Unavailable [phone] [...] Care Team (Late st Contact Info) Description 04/02/2017 Scanned Document [address] [phone] Provider, Generic Social History Tobacco [...] on filedocumented in this encounter Care Teams Single Wire Saw Operator Relationship Specialty Start Date End Date Julio Upton MD PCP - General Internal Medicine 05/24/17 10/23/20 Pcp, No PCP - General General Medicine 10/24/20 04/29/22 Julio Upton MD PCP - General Internal Medicine 04/30/22 05/05/22 System, Provider Not In PCP - General 05/11/22 07/21/23 Pcp, No PCP - General General Medicine 07/22/23 11/01/23 Samara Stubbs APRN [address] [place] [address] PCP - General 11/02/23 Dre Jenkins MD Resident Psychiatry, General 10/29/16 Zachary Paredes MD Physician Cardiovascular Disease 10/29/16 Angelo Randall MD Physician Pulmonary Disease 10/29/16 Sunil Whitten MD Physician Gastroenterology 12/15/16 Kavon Sara, [facility] [address] [employer] [address] [place] [address] [facility] Community Bioinformatics Computer Scientist 04/22/18 04/12/19 John Bergeron MD [address] [place] [address] Gastroenterology 08/22/18 Simon Ruth MD [address] [place] [address] Physician Psychiatry, General 12/15/18 Tani Santoro LPC [address] [place] [address] Centrifugal Casting Machine Operator Clinical Social Work 12/16/18 John Paul MD [address] [place] [address] Psychiatry, General 12/21/18 John Us MD [address] [place] [address] Psychiatry, General 12/22/18 Carter Begum MD Internal Medicine 10/20/21 Geovani Fernandez MD [address] [place] [address] Primary Hog Cutter Cardiovascular Disease 03/15/22 Vladimir Gomez MD [address] [place] [address] Primary Hog Cutter Cardiovascular Disease 03/15/22 Samara Mackey Advanced Practitioner 11/01/23 documented as of this encounter
--- OUTSIDE RECORDS SUMMARY | 2025-02-27 19:32 | XMS_ITS | Encounter Summary ---
Author Organization [facility] Address [address] [place] [address] Care Team Providers Care Skiver Sock Linings Name Role Phone Dre Jenkins MD Unavailable +[phone] Zachary Paredes MD Unavailable [phone] Angelo Randall MD Unavailable [phone] Rosas Cortez DO Primary Care Provider Unavai Sunil Gibson MD Unavailable [phone] Cosme Elkins MD Primary Care Prov ider Unavailable Julio Upton MD Primary Care Provider Unava ilable Sara Jacobson LCSW Unavailable +[phone] John Bergeron MD Unavailable [phone] Simon Ruth MD Unavailable Tani Santoro LPC Unavailable [phone] John Paul MD Unavailable [phone] John Us MD Unavailable [phone] Pcp, [...] st Contact Info) Description 10/31/2016 Scanned Document [facility] [place] [address] [place] [phone] Rosas Crotez DO Social History Tobacco Use Types Packs/Day [...] on filedocumented in this encounter Care Teams Skiver Sock Linings Relationship Specialty Start Date End Date Rosas [...] Medicine 07/22/23 11/01/23 Samara Stubbs APRN [address] [place] [address] PCP - General 11/02/23 Dre Jenkins MD Resident Psychiatry, General 10/29/16 Zachary Paredes MD Physician Cardiovascular Disease 10/29/16 Angelo Randall MD Physician Pulmonary Disease 10/29/16 Sunil Whitten MD Physician Gastroenterology 12/15/16 Sara Jacobson, [facility] [address] [place] [address] [address] [facility] Community Proof Tester 04/22/18 04/12/19 John Bergeron MD [address] [place] [address] Gastroenterology 08/22/18 Simon Ruth MD [address] [place] [address] Physician Psychiatry, General 12/15/18 Tani Santoro LPC [address] [place] [address] Financial Analysis Manager Clinical Social Work 12/16/18 John Paul MD [address] [place] [address] Psychiatry, General 12/21/18 John Us MD [address] [place] [address] Psychiatry, General 12/22/18 Carter Begum MD Internal Medicine 10/20/21 Geovani Fernandez MD [address] [place] [address] Primary Ferryboat Deckhand Cardiovascular Disease 03/15/22 Vladimir Gomez MD [address] [place] [address] Primary Ferryboat Deckhand Cardiovascular Disease 03/15/22 Samara Mackey Advanced Practitioner 11/01/23 documented as of this encounter
--- OUTSIDE RECORDS SUMMARY | 2025-02-27 19:32 | XMS_ITS | Clinical Summary ---
Author Organization [address] Address [address] [place] [phone] Phone Care Team Providers Care Litigation Partner Name Role Phone Julio Upton Primary Care Provider [phone] Allergies Active Allergy Reactions Criticality Noted Date Comments Azithromycin Hives High 06/26/2023 Bee Pollen Sneezing,Unknown Medium 10/18/2015 Robert Anaphylaxis High 02/19/2017 Environmental Allergies Sneezing 06/29/2016 Grass Pollen Sneezing 06/29/2016 Ibuprofen Palpitations High 01/17/2018 Bleeding Bleeding Iodinated Contrast Media Anaphylaxis High 01/06/2017 Latex Rash Low 10/06/2023 Mite Extract Sneezing,Unknown Medium 10/18/2015 Shellfish Derived Resp Distress 02/19/2017 Silver Hives High 03/09/2018 Silver Chloride Hives High 12/23/2023 Medications metoprolol succinate (TOPROL-XL) 200 MG 24 hr tablet Take 1 tablet (200 mg total) by mouth daily. Take with or immediately following a meal. Active cetirizine (ZYRTEC) 10 MG tablet Take 1 tablet (10 mg total) by mouth daily. Active QVAR REDIHALER 80 mcg/actuation HFA aerosol inhaler 1 puff. 4 Active cyclobenzaprine (FLEXERIL) 10 mg tablet 4 Active erenumab-aooe (AIMOVIG AUTOINJECTOR) 70 mg/mL autoinjector Active FLUoxetine (PROZAC) 40 mg capsule 4 Active hydrOXYzine (VISTARIL) 50 mg capsule TAKE 1-2 BY MOUTH AT BEDTIME 4 Active isosorbide mononitrate (IMDUR) 60 mg 24 hr extended release tablet Activ e ketoconazole (NIZORAL) 2 % cream APPLY TO THE AFFECTED AREA 2X PER DAY 4 Active XOPENEX HFA 45 mcg/actuation HFA aerosol inhaler Active levothyroxine (SYNTHROID, LEVOTHROID) 25 MCG tablet Take 1 tablet (25 mcg total) by mouth every morning. 4 Active levothyroxine (SYNTHROID, LEVOTHROID) 50 MCG tablet 4 Active losartan (COZAAR) 50 mg tablet 4 Active ondansetron (ZOFRAN) 4 mg tablet Active traZODone (DESYREL) 50 mg tablet Active glipiZIDE XL (GLUCOTROL XL) 10 mg 24 hr tablet take 1 tablet by mouth every day with breakfast 4 Active pantoprazole (PROTONIX) 40 mg tablet Take 1 tablet (40 mg total) by mouth 2 (two) times daily. 90 tablet 3 4 Active Additional Information Patient not taking.Reported on 02/24/2024 DULoxetine (CYMBALTA) 30 mg capsule Take 1 capsule (30 mg total) by mouth daily. 4 Active ipratropium-albu teroL (DUO-NEB) 0.5 mg-3 mg(2.5 mg base)/3 mL nebulizer solution USE ONE VIAL EVERY 4 HOURS NEEDED FOR COUGH 4 Active liothyronine (CYTOMEL) 25 MCG tablet Cytomel 25 MCG 4 Active nitroGLYCERIN (NITROSTAT) 0.[address] 1 tablet (0.4 mg total) under the tongue every 5 (five) minutes as needed. Active venlafaxine XR (EFFEXOR XR) 37.5 mg 24 hr capsule Venlafaxine HCl ER 37.5 MG Oral Capsule Extended Release 24 Hour QTY: 0 capsule Days: 90 Refills: 0 Written: 04/22/20 Patient Instructions: Active Active Problems Problem Noted Date Diagnosed Date Heartburn 02/20/2017 Constipation, unspecified constipation type 11/2016 Family History Medical History Relation Name Comments Colon cancer Father Colon polyps Father Relation Name Status Comments Father Social History Tobacco Use Types Packs/Day Years Used Date Smoking Tobacco: Never Tobacco Cessation:Counseling Given: Not Answered Alcohol Use Standard Drinks/Week Comments No 0 (1 standard drink = 0.6 oz pur e alcohol) Interpersonal Safety Answer Date Record ed Is there anyone in your life that is hurting or threatening you in anyway? Not on file 01/19/2024 Physical Indicators of Abuse No evidence of phys ical abuse 01/19/2024 Comments Unknown Sex and Gender Information Value Date Recorded Sex Assigned at Not on file Legal Sex Female 1:15 PM EDT Gender Identity Not on file Sexual Orientation Not on file Last Filed Vital Signs Vital Sign Reading Time Taken Comments Blood Pressure 158/97 01/19/2024 1:36 PM EST Pulse 67 01/19/2024 1:36 PM EST Temperature 36.3 C (97.3 F) 01/19/2024 1:15 PM EST Respiratory Rate 16 01/19/2024 1:36 PM EST Oxygen Saturation 95% 01/19/2024 1:15 PM EST Inhaled Oxygen Concentration - - Weight 85.7 kg (189 lb) 02/23/2024 2:23 PM EST Height 157.5 cm (5' 2 ) 01/19/2024 12:10 PM EST Body Mass Index 34.57 01/19/2024 12:10 PM EST Plan of Treatment Health Maintenance Due Date Last Done Comments HIV screening 07/17/1967 Hepatitis C screening 1972 Breast cancer screening 1994 Lipid disorder screening 1994 Colon cancer screening, Colonoscopy 07/17/1999 Diabetes screening 07/17/1999 Pneumococcal Vaccine (50+ ye ars) (1 of 1 - PCV) 2004 Shingles vaccine (Shingrix) (1 of 2 - Shingrix (RZV) 2 Dose Standard Series) 2004 Osteoporosis screening (bone density) 07/17/2019 Influenza vaccine 10/13/2024 Covid-19 vaccine series ( - season) 2024 Tetanus adult (Td q 10,TDAP once) 05/31/2029 020 RSV Immunization (1 - 1-dose 75+ series) 2029 Cervical cancer screening Discontinued Meningococcal B Vaccine Aged Out No l onger eligible based on patient's age to complete this topic Meningococcal Vaccine Aged Out No benjamin rahul eligible based on patient's age to complete this topic [place] Subscriber Plan / Payer (Ef fective 2016-Present) Name:Lilly Rey Relation to Subscriber:Self Name:Lilly Rey Payer ID:[id number] Group ID:Not on file Type:Not on file Address: [address] [place] Care Teams Litigation Partner Relationship Specialty Start Date End Date Julio Upton [address] [facility] , [place] [address] PCP - General 10/05/22
--- OUTSIDE RECORDS SUMMARY | 2025-02-27 19:32 | XMS_ITS | Encounter Summary ---
Author Organization [facility] Address [address] [place] [address] Care Team Providers Care Train Starter Name Role Phone Dre Jenkins MD Unavailable +[phone] Zachary Paredes MD Unavailable [phone] Angelo Randall MD Unavailable [phone] Rosas Cortez DO Primary Care Provider Unavai Sunil Gibsno MD Unavailable [phone] Cosme Elkins MD Primary Care Prov ider Unavailable Julio Upton MD Primary Care Provider Unava ilable Sara Jacobson LCSW Unavailable [phone] John Bergeron MD Unavailable [phone] Simon Ruth MD Unavailable [phone] Tani Santoro LPC Unavailable [phone] John Paul MD Unavailable [phone] John Us MD Unavailable [phone] Pcp, [...] st Contact Info) Description 10/31/2016 Scanned Document [facility] [place] [address] [place] [phone] Rosas Cortez DO Social History Tobacco [...] on filedocumented in this encounter Care Teams Train Starter Relationship Specialty Start Date End Date Rosas [...] General Medicine 07/22/23 11/01/23 Samara Stubbs APRN [address] [place] [address] PCP - General 11/02/23 Dre Jenkins MD Resident Psychiatry, General 10/29/16 Zachary Paredes MD Physician Cardiovascular Disease 10/29/16 Angelo Randall MD Physician Pulmonary Disease 10/29/16 Sunil Whitten MD Physician Gastroenterology 12/15/16 Sara Jacobson, [facility] [address] [place] [address] [address] [facility] Community Joint Filler 04/22/18 04/12/19 John Bergeron MD [address] [place] [address] Gastroenterology 08/22/18 Simon Ruth MD [address] [place] [address] Physician Psychiatry, General 12/15/18 Tani Santoro LPC [address] [place] [address] Brake Drum Lathe Operator Clinical Social Work 12/16/18 John Paul MD [address] [place] [address] Psychiatry, General 12/21/18 John Us MD [address] [place] [address] Psychiatry, General 12/22/18 Carter Begum MD Internal Medicine 10/20/21 Geovani Fernandez MD [address] [place] [address] Primary Pie Chef Cardiovascular Disease 03/15/22 Vladimir Gomez MD [address] [place] [address] Primary Pie Chef Cardiovascular Disease 03/15/22 Samara Mackey Advanced Practitioner 11/01/23 documented as of this encounter
--- OUTSIDE RECORDS SUMMARY | 2025-02-27 19:32 | XMS_ITS | Encounter Summary ---
Author Organization [facility] Address [address] [place] [address] Care Team Providers Care Fiberglass Boat Parts Finisher Name Role Phone Dre Jenkins MD Unavailable +[phone] Zachary Paredes MD Unavailable [phone] Angelo Randall MD Unavailable [phone] Sunil Whitten MD Unavailable [phone] Julio Upton MD Primary Care Provider Unava ilable Sara Jacobson LCSW Unavailable [phone] John Bergeron MD Unavailable [phone] Simon Ruth MD Unavailable [phone] Tani Santoro LPC Unavailable [phone] John Paul MD Unavailable [phone] [...] Care Team (Late st Contact Info) Description 03/30/2017 Scanned Document [facility] [address], [place] [address] [place] [address] Provider, Generic Social History Tobacco Use Types [...] on filedocumented in this encounter Care Teams Fiberglass Boat Parts Finisher Relationship Specialty Start Date End Date Julio Upton MD PCP - General Internal Medicine 05/24/17 10/23/20 Pcp, No PCP - General General Medicine 10/24/20 04/29/22 Julio Upton MD PCP - General Internal Medicine 04/30/22 05/05/22 System, Provider Not In PCP - General 05/11/22 07/21/23 Pcp, No PCP - General General Medicine 07/22/23 11/01/23 Samara Stubbs APRN [address] [place] [address] PCP - General 11/02/23 Dre Jenkins MD Resident Psychiatry, General 10/29/16 Zachary Paredes MD Physician Cardiovascular Disease 10/29/16 Angelo Randall MD Physician Pulmonary Disease 10/29/16 Sunil Whitten MD Physician Gastroenterology 12/15/16 Jacobson Sara, [facility] 1290 [facility] 4 [place] [address] [facility] Community Soda Worker 04/22/18 04/12/19 John Bergeron MD [address] [place] [address] Gastroenterology 08/22/18 Simon Ruth MD [address] [place] [address] Physician Psychiatry, General 12/15/18 Tani Santoro LPC [address] [place] [address] Microfabrication Engineer Manager Clinical Social Work 12/16/18 John Paul MD [address] [place] [address] Psychiatry, General 12/21/18 John Us MD [address] [place] [address] Psychiatry, General 12/22/18 Carter Begum MD Internal Medicine 10/20/21 Geovani Fernandez MD [address] [place] [address] Primary Real Estate Leasing Manager Cardiovascular Disease 03/15/22 Vladimir Gomez MD [address] [place] [address] Primary Real Estate Leasing Manager Cardiovascular Disease 03/15/22 Samara Mackey Advanced Practitioner 11/01/23 documented as of this encounter
--- OUTSIDE RECORDS SUMMARY | 2025-02-27 19:32 | XMS_ITS | Encounter Summary ---
Author Organization [facility] Address [address] [place] [address] Care Team Providers Care Minesweeping Officer Name Role Phone Dre Jenkins MD Unavailable +[phone] Zachary Paredes MD Unavailable [phone] Angelo Randall MD Unavailable [phone] Rosas Cortez DO Primary Care Provider Unavai Sunil Gibson MD Unavailable [phone] Cosme Elkins MD Primary Care Prov ider Unavailable Julio Upton MD Primary Care Provider Unava ilable Sara Jacobson LCSW Unavailable +[phone] John Bergeron MD Unavailable [phone] Simon Ruth MD Unavailable [phone] Tani Santoro LPC Unavailable [phone] John Paul MD Unavailable [phone] John Us MD Unavailable [phone] Pcp, [...] st Contact Info) Description 10/31/2016 Scanned Document [facility] [place] [address] [place] [phone] Rosas Cortez DO Social History Tobacco [...] on filedocumented in this encounter Care Teams Minesweeping Officer Relationship Specialty Start Date End Date Rosas [...] General Medicine 07/22/23 11/01/23 Samara Stubbs APRN [address] [place] [address] PCP - General 11/02/23 Dre Jenkins MD Resident Psychiatry, General 10/29/16 Zachary Paredes MD Physician Cardiovascular Disease 10/29/16 Angelo Randall MD Physician Pulmonary Disease 10/29/16 Sunil Whitten MD Physician Gastroenterology 12/15/16 Sara Jacobson, [facility] [address] [place] [address] [address] [facility] Community Curator Of Collections 04/22/18 04/12/19 John Bergeron MD [address] [place] [address] Gastroenterology 08/22/18 Simon Ruth MD [address] [place] [address] Physician Psychiatry, General 12/15/18 Tani Santoro LPC [address] [place] [address] Director Business Intelligence Clinical Social Work 12/16/18 John Paul MD [address] [place] [address] Psychiatry, General 12/21/18 John Us MD [address] [place] [address] Psychiatry, General 12/22/18 Carter Begum MD Internal Medicine 10/20/21 Geovani Fernandez MD [address] [place] [address] Primary Program Director Air Talent Cardiovascular Disease 03/15/22 Vladimir Gomez MD [address] [place] [address] Primary Program Director Air Talent Cardiovascular Disease 03/15/22 Samara Mackey Advanced Practitioner 11/01/23 documented as of this encounter
--- OUTSIDE RECORDS SUMMARY | 2025-02-27 19:33 | XMS_ITS | Encounter Summary ---
Author Organization [facility] Address [address] [place] [address] Care Team Providers Care Research Management Associate Name Role Phone Dre Jenkins MD Unavailable +[phone] Zachary Paredes MD Unavailable [phone] Angelo Randall MD Unavailable [phone] Sunil Whitten MD Unavailable [phone] Cosme Elkins MD Primary Care Prov ider Unavailable Julio Upton MD Primary Care Provider Unava ilable Sara Jacobson LCSW Unavailable [phone] John Bergeron MD Unavailable [phone] Simon Ruth MD Unavailable [phone] Tani Santoro LPC Unavailable [phone] John Paul MD Unavailable [phone] [...] Care Team (Late st Contact Info) Description 01/05/2017 Scanned Document [address] [id number] Provider, Generic Social History Tobacco Use Types [...] on filedocumented in this encounter Care Teams Research Management Associate Relationship Specialty Start Date End Date Cosme [...] Medicine 07/22/23 11/01/23 Samara Stubbs APRN [address] [place] [address] PCP - General 11/02/23 Dre Jenkins MD Resident Psychiatry, General 10/29/16 Zachary Paredes MD Physician Cardiovascular Disease 10/29/16 Angelo Randall MD Physician Pulmonary Disease 10/29/16 Sunil Whitten MD Physician Gastroenterology 12/15/16 Sara Jacobson, [facility] [address] [place] Oleg[address] [facility] 4 [place] [address] [facility] [place] Manager 04/22/18 04/12/19 John Bergeron MD [address] [place] [address] Gastroenterology 08/22/18 Simon Ruth MD [address] [place] [address] Physician Psychiatry, General 12/15/18 Tani Santoro LPC [address] [place] [address] Tower Truck Driver Clinical Social Work 12/16/18 John Paul MD [address] [place] [address] Psychiatry, General 12/21/18 John Us MD [address] [place] [address] Psychiatry, General 12/22/18 Carter Begum MD Internal Medicine 10/20/21 Geovani Fernandez MD [address] [place] [address] Primary Guide Dog Mobility Instructor Cardiovascular Disease 03/15/22 Vladimir Gomez MD [address] [place] [address] Primary Guide Dog Mobility Instructor Cardiovascular Disease 03/15/22 Samara Mackey Advanced Practitioner 11/01/23 documented as of this encounter
--- OUTSIDE RECORDS SUMMARY | 2025-02-27 19:33 | XMS_ITS | Encounter Summary ---
Author Organization [facility] Address [address] [place] [address] Care Team Providers Care Geographic Information Systems Director Name Role Phone Dre Jenkins MD Unavailable +[phone] Zachary Paredes MD Unavailable [phone] Angelo Randall MD Unavailable +[phone] Sunil Whitten MD Unavailable [phone] Cosme Elkins MD Primary Care Prov ider Unavailable Julio Upton MD Primary Care Provider Unava ilable Sara Jacobson LCSW Unavailable +[phone] John Bergeron MD Unavailable [phone] Simon Ruth MD Unavailable [phone] Tani Santoro LPC Unavailable [phone] John Paul MD Unavailable [phone] [...] st Contact Info) Description 01/06/2017 Scanned Document [address] [phone] Cosme Elkins MD Social History Tobacco Use Types Packs/Day [...] on filedocumented in this encounter Care Teams Geographic Information Systems Director Relationship Specialty Start Date End Date Cosme [...] General Medicine 07/22/23 11/01/23 Samara Stubbs APRN [address] [place] [id number] PCP - General 11/02/23 Dre Jenkins MD Resident Psychiatry, General 10/29/16 Zachary Paredes MD Physician Cardiovascular Disease 10/29/16 Angelo Randall MD Physician Pulmonary Disease 10/29/16 Sunil Whitten MD Physician Gastroenterology 12/15/16 Sara Jacobson, [facility] [address] [address] [facility] Bakery Demonstrator 04/22/18 04/12/19 John Bergeron MD [address] [place] [address] Gastroenterology 08/22/18 Simon Ruth MD [address] [place] [address] Physician Psychiatry, General 12/15/18 Tani Santoro LPC [address] [place] [address] Cone Picker Clinical Social Work 12/16/18 John Paul MD [address] [place] [address] Psychiatry, General 12/21/18 John Us MD [address] [place] [address] Psychiatry, General 12/22/18 Carter Begum MD Internal Medicine 10/20/21 Geovani Fernandez MD [address] [place] [address] Primary Bottling Line Operator Cardiovascular Disease 03/15/22 Vladimir Gomez MD [address] [place], [place] [address] [phone] Primary Bottling Line Operator Cardiovascular Disease 03/15/22 Samara Mackey Advanced Practitioner 11/01/23 documented as of this encounter
--- OUTSIDE RECORDS SUMMARY | 2025-02-27 19:33 | XMS_ITS | Encounter Summary ---
Author Organization [facility] Address [address] [place] [address] Care Team Providers Care Power Plant Mechanic Name Role Phone Dre Jenkins MD Unavailable +-[phone] Zachary Paredes MD Unavailable [phone] Angelo Randall MD Unavailable +[phone] Sunil Whitten MD Unavailable [phone] Cosme Elkins MD Primary Care Prov ider Unavailable Julio Upton MD Primary Care Provider Unava ilable Sara Jacobson LCSW Unavailable +[phone] John Bergeron MD Unavailable [phone] Simon Ruth MD Unavailable [phone] Tani Santoro LPC Unavailable [phone] John Paul MD Unavailable [phone] [...] Care Team (Late st Contact Info) Description 12/15/2016 Scanned Document [address] [phone] Provider, Generic Social History Tobacco [...] on file documented as of this encounter Procedures Procedure Name Priority Date/Time Associated Diagnosis Comments STRESS TEST 12/15/2016 documented in this encounter Results * STRESS TEST (12/15/2016) Anatomical Region Laterality Modality Other Narrative 12/15/2016 Ordered by an unspecified provider. us Generic Provider HX AMB PROCEDURES Final Result documented in this encounter Visit Diagnoses Not on filedocumented in this encounter Care Teams Power Plant Mechanic Relationship Specialty Start Date End Date Cosme [...] General Medicine 07/22/23 11/01/23 Samara Stubbs APRN [address] [place] [address] PCP - General 11/02/23 Dre Jenkins MD Resident Psychiatry, General 10/29/16 Zachary Paredes MD Physician Cardiovascular Disease 10/29/16 Angelo Randall MD Physician Pulmonary Disease 10/29/16 Sunil Whitten MD Physician Gastroenterology 12/15/16 Sara Jacobson, [facility] [address] [address] [facility] Community Patrol Man 04/22/18 04/12/19 John Bergeron MD [address] [place] [phone] Gastroenterology 08/22/18 Simon Ruth MD [address] [place] [address] Physician Psychiatry, General 12/15/18 Tani Santoro LPC [address] [place] [address] Wearing Apparel Folder Clinical Social Work 12/16/18 John Paul MD [address] [place] [address] Psychiatry, General 12/21/18 John Us MD [address] [place] [address] Psychiatry, General 12/22/18 Carter Begum MD Internal Medicine 10/20/21 Geovani Fernandez MD [address] [place], [place] [phone] Primary Powder Loader Cardiovascular Disease 03/15/22 Vladimir Gomez MD [address] [place] [address] Primary Powder Loader Cardiovascular Disease 03/15/22 Samara Mackey Advanced Practitioner 11/01/23 documented as of this encounter
--- OUTSIDE RECORDS SUMMARY | 2025-02-27 19:33 | XMS_ITS | Encounter Summary ---
Author Organization [facility] Address [address] [place] [address] Care Team Providers Care Shell Reprint Operator Name Role Phone Dre Jenkins MD Unavailable +-[phone] Zachary Paredes MD Unavailable [phone] Angelo Randall MD Unavailable +[phone] Sunil Whitten MD Unavailable [phone] Cosme Elkins MD Primary Care Prov ider Unavailable Julio Upton MD Primary Care Provider Unava ilable Sara Jacobson LCSW Unavailable +[phone] John Bergeron MD Unavailable [phone] Simon Ruth MD Unavailable [phone] Tani Santoro LPC Unavailable [phone] John Paul MD Unavailable [phone] [...] st Contact Info) Description 01/06/2017 Scanned Document [address] [phone] Provider, Generic Social History Tobacco Use Types [...] on filedocumented in this encounter Care Teams Shell Reprint Operator Relationship Specialty Start Date End Date Cosme [...] General Medicine 07/22/23 11/01/23 Samara Stubbs APRN [address] [place] [address] PCP - General 11/02/23 Dre Jenkins MD Resident Psychiatry, General 10/29/16 Zachary Paredes MD Physician Cardiovascular Disease 10/29/16 Angelo Randall MD Physician Pulmonary Disease 10/29/16 Sunil Whitten MD Physician Gastroenterology 12/15/16 Sara Jacobson, [facility] [address] [facility] [address] [place] [address] [facility] Manager 04/22/18 04/12/19 John Bergeron MD [address] [place] [address] Gastroenterology 08/22/18 Simon Ruth MD [address] [place] [address] Physician Psychiatry, General 12/15/18 Tani Santoro LPC [address] [place] [address] Web Content Coordinator Clinical Social Work 12/16/18 John Paul MD [address] [place] [address] Psychiatry, General 12/21/18 John Us MD [address] [place] [address] Psychiatry, General 12/22/18 Carter Begum MD Internal Medicine 10/20/21 Geovani Fernandez MD [address] [place] [address] Primary Construction Safety Consultant Cardiovascular Disease 03/15/22 Vladimir Gomez MD [address] [facility] [place] [address] Primary Construction Safety Consultant Cardiovascular Disease 03/15/22 Samara Mackey Advanced Practitioner 11/01/23 documented as of this encounter
--- OUTSIDE RECORDS SUMMARY | 2025-02-27 19:33 | XMS_ITS | Encounter Summary ---
Author Organization [facility] Address [address] [place] [address] Care Team Providers Care Grinder Carbon Plant Name Role Phone Dre Jenkins MD Unavailable +-[phone] Zachary Paredes MD Unavailable [phone] Angelo Randall MD Unavailable +[phone] Sunil Whitten MD Unavailable [phone] Cosme Elkins MD Primary Care Prov ider Unavailable Julio Upton MD Primary Care Provider Unava ilable Sara Jacobson LCSW Unavailable [phone] John Bergeron MD Unavailable [phone] Simon Ruth MD Unavailable [phone] Tani Santoro LPC Unavailable [phone] John Paul MD Unavailable [phone] [...] Care Team (Late st Contact Info) Description 12/27/2016 Scanned Document [address] [phone] Cosme Elkins MD Social History Tobacco Use [...] on filedocumented in this encounter Care Teams Grinder Carbon Plant Relationship Specialty Start Date End Date Cosme [...] General Medicine 07/22/23 11/01/23 Samara Stubbs APRN [address] [place] [address] PCP - General 11/02/23 Dre Jenkins MD Resident Psychiatry, General 10/29/16 Zachary Paredes MD Physician Cardiovascular Disease 10/29/16 Angelo Randall MD Physician Pulmonary Disease 10/29/16 Sunil Whitten MD Physician Gastroenterology 12/15/16 Sara Jacobson, [facility] [address] [address] [facility] Managed Care Director 04/22/18 04/12/19 John Bergeron MD [address] [place] [address] Gastroenterology 08/22/18 Simon Ruth MD [address] [place] [address] Physician Psychiatry, General 12/15/18 Tani Santoro LPC [address] [place] [address] Manager Gift Clinical Social Work 12/16/18 John Paul MD [address] [place] [address] Psychiatry, General 12/21/18 John Us MD [address] [place] [address] Psychiatry, General 12/22/18 Carter Begum MD Internal Medicine 10/20/21 Geovani Fernandez MD [address] [place] [address] Primary Hearing Care Practitioner Cardiovascular Disease 03/15/22 Vladimir Gomez MD [address] [place], [place] [address] [phone] Primary Hearing Care Practitioner Cardiovascular Disease 03/15/22 Samara Mackey Advanced Practitioner 11/01/23 documented as of this encounter
[2025-02-27 19:51] LABS: Free T4 (Free Thyroxine) 1.04 ng/dL (0.71-1.85)
[2025-02-28 04:49] LABS: Syphilis Screen Nonreactive (Nonreactive)
[2025-02-28 05:26] LABS: HBS Num1 0.00 mIU/mL (0-7.99); HIV Num 1 0.08 S/CO (0.00-0.99); ~HepC Num1 0.10 S/CO (0.00-0.79); ~Hepatitis B Surface Antibody NONREACTIVE (Nonreactive); ~Hepatitis C Antibody Nonreactive (Nonreactive)
[2025-03-01 13:27] LABS: HBsAGNum1 0.25 S/CO (0.00-0.99); Hepatitis B Surface Antigen Negative (Negative)
[2025-03-03 13:38] LABS: Vitamin D 25-OH, D2 <4 ng/mL; Vitamin D 25-OH, D3 29 ng/mL; Vitamin D 25-OH, Total 29 ng/mL (30-100)
== END 2025-02-27 14:04 | disposition home or self-care (01) ==
LOC: HO.HKASLDS 14:03
PROVIDERS: PCP Student in an Organized Health Care Education/Training Program; Visit Provider Student in an Organized Health Care Education/Training Program
DX: Z28.21 Immunization not carried out because of patient refusal (principal); Z13.9 Encounter for screening, unspecified; G20.A1 Parkinson's disease without dyskinesia, without mention of fluctuations; E11.9 Type 2 diabetes mellitus without complications; I25.10 Atherosclerotic heart disease of native coronary artery without angina pectoris; K29.70 Gastritis, unspecified, without bleeding; K21.9 Gastro-esophageal reflux disease without esophagitis; J45.909 Unspecified asthma, uncomplicated; M54.9 Dorsalgia, unspecified; M62.838 Other muscle spasm; M81.0 Age-related osteoporosis without current pathological fracture; G43.909 Migraine, unspecified, not intractable, without status migrainosus; E03.9 Hypothyroidism, unspecified; I10 Essential (primary) hypertension; R11.2 Nausea with vomiting, unspecified; G47.00 Insomnia, unspecified; F41.9 Anxiety disorder, unspecified; F32.A Depression, unspecified; H26.9 Unspecified cataract; K08.109 Complete loss of teeth, unspecified cause, unspecified class; R29.6 Repeated falls; Z87.11 Personal history of peptic ulcer disease
CPT/HCPCS: 36415; 80053; 80061; 82306; 82607; 82746; 83036; 83735; 84439; 84443; 85025; 86706; 86780; 86803; 87340; 87389; 90471; 96127; 99202